=== PATIENT | female | born 1965 | race Caucasian/White ===

== ENCOUNTER 2021-10-20 07:50 | Outpatient (CLI) | payer OTHER, SELFPAY ==
--- NOTE | 2021-11-01 22:24 | WPDHOMESLEEP ---
Sleep Study - Home Unattended Date of Study: 10/20/21 Ordering Provider: Calr Sol MD Interpreting Provider: Beth Tripathi, DO Home Sleep Study Type: Apnea Link Air Height: 1.63 m Weight: 78.018 kg Body Mass Index: 29.5 Neck Circumference (inches): 14 Mcnabb: 7 Reason for Sleep Study Loud snoring, unrefreshing sleep Sleep History The patient is a 56-year-old female with asthma, hypertension, GERD, anxiety, depression, anemia and eczema that had a sleep study ordered by her primary care physician for evaluation of sleep apnea. The patient denies awakening from sleep short of breath. She frequently awakens at night with heartburn, belching or cough. She frequently snores and is constantly loudly enough that others complain. She occasionally has trouble sleeping when she has a cold. She denies waking up gasping for air throughout the night. She denies having breathing problems at night observed by herself or others. She frequently sweats excessively at night. She denies having heart palpitations or irregular heartbeats during the night. She rarely falls asleep during the day and never while driving. She denies cataplexy. She denies having trouble at school or work due to sleepiness. She rarely feels unable to move when waking up or falling asleep. She occasionally experiences vivid dreamlike scenes upon awakening or falling asleep. She denies feeling afraid of going to sleep. She occasionally has nightmares. She frequently remembers her dreams. She frequently has thoughts racing through her mind. She occasionally feels sad or depressed. She constantly has anxiety. She denies having muscular tension. She occasionally notices parts of her body jerk. She rarely kicks during the night. She rarely has crawling and aching feelings in her legs. She rarely has leg pain during the night. She occasionally grinds her teeth during sleep and occasionally awakens with morning jaw pain. She is occasionally bothered by pain during the day but rarely awakened by pain during the night. She occasionally wakes up feeling stiff in the morning. She occasionally wakes up with sore achy muscles. She frequently wakes up with pain in the neck, spine and other joints. She goes to bed between 10 30 to 11:30 p.m. on both weekdays and weekends. It takes her 2 hours to fall asleep. She wakes up 3-5 times throughout the night to urinate. It takes her 30-60 minutes to fall back asleep. She wakes up between 6-8 a.m. on weekdays and between 7-9 a.m. on the weekends. She typically gets 7-9 hours of sleep per night. She will stay in bed for 5-20 minutes after waking up in the morning. She currently lives with her . She does not consume any caffeinated beverages within 2 hours of bedtime. She does not engage in physical exercise before bedtime. She will watch television before falling asleep. She will take naps in the afternoon or the evening and they are refreshing. She drinks 2-3 caffeinated beverages per day. She drinks 3 alcoholic beverages per day. She denies tobacco and recreational drug use. [facility] Past Medical History Medical History Acute cholecystitis Acute pancreatitis (~03/21/21) Anemia (06/06/20) hemoglobin 8.9 on 06/06/2020 Anxiety disorder, unspecified Benign essential HTN BMI 29.0-29.9,adult BMI 33.0-33.9,adult Breast cancer screening by mammogram Normal mammogram 02/03/2021 ordered by saturator tender. Chronic bilateral low back pain with left-sided sciatica Chronic depression Chronic GERD Colon cancer screening COVID-19 (08/16/21) tested positive 08/17/2021. Eczema (~09/07/21) eczematous patches on back 09/07/2021. Elevated fasting glucose Glucose 111 on 04/15/2021. Encounter for screening for other viral diseases COVID antibody test on 06/06/2020 was negative Folic acid deficiency Gastritis Hypersomnia Insomnia, unspecified Iron deficiency an
[2021-11-01 22:34] VITALS: BMI 29.5
== END 2021-10-21 14:42 | disposition home or self-care (01) ==
LOC: ANHCSM 07:52
PROVIDERS: PCP Family Medicine; Visit Provider Family Medicine
DX: G47.10 Hypersomnia, unspecified (principal); G47.00 Insomnia, unspecified; G47.33 Obstructive sleep apnea (adult) (pediatric)
CPT/HCPCS: 95806

== ENCOUNTER 2024-05-07 01:22 | Day surgery (SDC) | payer OTHER, SELFPAY ==
[2024-04-23 16:03] VITALS: BMI 31.4
--- OUTSIDE RECORDS SUMMARY | 2024-05-07 01:25 | XMS_ITS | Clinical Summary ---
Author Organization [facility] [employer] Address [address] [place] [address] Care Team Providers Care Java Analyst Name Role Phone Unavailable Primary Care Provider Unavailabl e Source Comments [facility] [employer],non-owned Affiliates and Associated Physician Practices is amultiple site organization consisting of ambulatory clinics and hospital sitesin [place], [place], [place]. This disclosure is being madepursuant to the Care Everywhere program and may not contain all information available regarding this patient. Last updated 17.[facility] [employer] Social History Tobacco Use Types Packs/Day Years Used Date Smoking Tobacco: Never Assessed Sex and Gender Information Value Date Recorded Sex Assigned at Not on file Gender Identity Not on file Sexual Orientation Not on file Plan of Treatment Health Maintenance Due Date Last Done Comments COLOGUARD (AGES 45-75) - COL ON CA SCREENING 1963 COLON MONITORING 1963 COLONOSCOPY - COLON CA SCREENING 1963 CT COLONOGRAPHY - COLON CA SCREENING 1963 Colorectal Cancer Screening 1963 FIT - COLON CA SCREENING 1963 FLEX SIG - COLON CA SCREENING 1963 LIPID TESTING 1963 MAMMOGRAM 1963 PAP SMEAR 1963 HIV SCREENING 1978 HEPATITIS C SCREENING 03/14/1981 DTAP/TDAP/TD VACCINES (1 - Tdap) 1982 PNEUMOCOCCAL VACCINE 50+ (1 of 1 - PCV) 2013 ZOSTER VACCINE (1 of 2) 2013 COVID-19 VACCINE ( - 2023-2 5 season) 2023 INFLUENZA VACCINE (#1) 2023 DEPRESSION SCREENING 02/29/2024 Respiratory Syncytial Virus (RSV) Vaccine Pt: or over 60 yrs (1 - 1-dose 75+ series) 2038 HEPATITIS B VACCINE Aged Out No longe r eligible based on patient's age to complete this topic HIB VACCINE Aged Out No longer eligi ble based on patient's age to complete this topic HPV VACCINE Aged Out No longer eligi ble based on patient's age to complete this topic MENINGOCOCCAL (Group B) VACCINE Aged Out No longer eligible based on patient's age to complete this topic MENINGOCOCCAL VACCINE Aged Out No michele gia eligible based on patient's age to complete this topic PNEUMOCOCCAL VACCINE Aged Out No long er eligible based on patient's age to complete this topic
--- OUTSIDE RECORDS SUMMARY | 2024-05-07 01:25 | XMS_ITS | Clinical Summary ---
Author Organization [facility] [address] [place] [id number] Care Team Providers Care Asbestos Siding Mechanic Name Role Phone Carl Sol MD Primary Care Provider [phone] Allergies No known active allergies Medications venlafaxine XR (EFFEXOR-XR) 75 mg 24 hr capsule Take 1 capsule (75 mg total) by mouth daily Active nebivoloL (BYSTOLIC) 5 mg tablet Take 1 tablet (5 mg total) by mouth daily Active omeprazole (PriLOSEC) 40 mg capsule Take 1 capsule (40 mg total) by mouth daily Active levalbuterol (XOPENEX HFA) 45 mcg/actuation inhaler Inhale 2 puffs every 6 (six) hours as needed Active mometasone-formo terol (DULERA 100) 100-5 mcg/actuation inhaler Inhale 2 puffs 2 (two) times a day Rinse mouth with water after use. Do not swallow. Active zolpidem (AMBIEN) 10 mg tablet Take 1 tablet (10 mg total) by mouth nightly as needed 03/05/19 22 Active triamcinolone (KENALOG) 0.1 % ointment triamcinolone acetonide 0.1 % topical ointment MIX WITH NYSTATIN AND APPLY TO THE AFFECTED AREA TWICE DAILY FOR 4 WEEKS, THEN APPLY ONCE DAILY FOR 4 WEEKS, THEN APPLY 3 TIMES A WEEK FOR 4 Active amLODIPine (NORVASC) 2.5 mg tablet Take 1 tablet (2.5 mg total) by mouth daily Active ALPRAZolam (XANAX) 0.25 mg tablet Take by mouth 2 (two) times a day as needed for anxiety Active atorvastatin (LIPITOR) 20 mg tablet 1 tablet (20 mg total) Active celecoxib (CeleBREX) 200 mg capsule Take 1 capsule (200 mg total) by mouth 2 (two) times a day Active clobetasoL (TEMOVATE) 0.05 % ointment Apply 1 Application topically 2 (two) times a day Active docusate sodium (Colace) 100 mg capsuleIndicatio ns:constipation Take 1 capsule (100 mg total) by mouth 2 (two) times a day for 14 days 28 capsule 12/01/19 23 Active docusate sodium (Colace) 100 mg capsuleIndicatio ns:constipation Take 1 capsule (100 mg total) by mouth 2 (two) times a day for 14 days 28 capsule 12/01/19 23 Active albuterol HFA (PROVENTIL HFA,VENTOLIN HFA,PROAIR HFA) 90 mcg/actuation inhalerIndicatio ns:Mild persistent asthma with exacerbation INHALE TWO PUFFS BY MOUTH EVERY 6 HOURS NEEDED FOR SHORTNESS OF BREATH OR WHEEZING 03/31/19 24 Active inhalational spacing device (Aerochamber MV) spacerIndication s:Mild persistent asthma with exacerbation Use with albuterol inhaler 1 each 04/26/19 24 Active Active Problems Problem Noted Date Diagnosed Date S/P umbilical hernia repair, follow-up exam 11/28 Umbilical hernia with obstruction 11/30/2022 Hypertension 11/28/2022 Hyperlipidemia 11/28/2022 Mild intermittent asthma without complication GERD without esophagitis 11/28/2022 Depression with anxiety 11/28/2022 Acute cholecystitis 04/16/2021 Assessment & Plan (04/16/2021 8:39 AM RECLAMATION WORKER): Diet as tolerated. Okay to return to work with light duty. No heavy lifting greater than 20 lb for 4 weeks. No submerging incisions for 4 weeks. Please call for any further questions or concerns. Ventral hernia with bowel obstruction 04/16/2021 Assessment & Plan (04/16/2021 8:40 AM RECLAMATION WORKER): The patient had a known umbilical hernia. When her gallbladder was causing the attack she had a significant amount of nausea and vomiting which made it enlarged. We have discussed correcting this and the need for mesh implantation if she would decide to pursue this in a month or so after she has recovered from gallbladder surgery. She is going to call us if she would like to set this up. Surgical History Surgery Date Site/Laterality Comments CHOLECYSTECTOMY 04/02/2021 Medical History Medical History Date Comments GERD (gastroesophageal reflux disease) Hypertension Motion sickness Depression Asthma Social History Tobacco Use Types Packs/Day Years Used Date Smoking Tobacco: Never Tobacco Cessation:Counseling Given: Not Answered AUDIT-C Answer Date Recorded Q1: How often do you have a drink containing alc ohol? Monthly or less 11/28/2022 Q2: How many drinks containi ng alcohol do you have on a typical day when you are drinking? 1 or 2 11/28/2022 Q3: How often do you have si x or more drinks on one occasion? Never 11/28/2022 Personal Safety Answer Date Recorded Have you ever been in or are you currently in a harmful physical or emotional relationship or is someone making you feel afraid or unsafe? Denies 11/28/2022 Comments No Sex and Gender Information Value Date Recorded Sex Assigned at Not on file Legal Sex Female 7:56 AM CDT Gender Identity Female 04/03/2021 8:59 PM RECLAMATION WORKER Sexual Orientation Straight 04/03/2021 8: 59 PM RECLAMATION WORKER Obstetrics History Last Filed Vital Signs Vital Sign Reading Time Taken Comments Blood Pressure 110/74 04/26/2023 4:42 PM RECLAMATION WORKER Pulse 83 04/26/2023 4:42 PM RECLAMATION WORKER Temperature 36.8 C (98.2 F) 04/26/2023 5:56 PM RECLAMATION WORKER Respiratory Rate 20 04/26/2023 4:42 PM RECLAMATION WORKER Oxygen Saturation 97% 04/26/2023 5:56 PM RECLAMATION WORKER Inhaled Oxygen Concentration - - Weight 84.4 kg (186 lb) 04/26/2023 4:42 PM RECLAMATION WORKER Height 162.6 cm (5' 4 ) 04/26/2023 4:42 PM RECLAMATION WORKER Body Mass Index 31.93 04/26/2023 4:42 PM RECLAMATION WORKER Plan of Treatment Health Maintenance Due Date Last Done Comments Cervical Cancer Screening 1963 Colon Cancer Screening-Colonoscopy 1963 Depression Screening 1963 Hepatitis C Screening 1963 DTaP/Tdap/Td Vaccine (1 - Tdap) 1974 Hepatitis B Screening 1981 Regular Well Visit/Exam 18-64 1981 Pneumococcal vaccine <65 (1 of 2 - PCV) 1982 Zoster Vaccine (1 of 2) 2013 Breast Cancer Screening-Mammogram 02/04/2022 021 Influenza Vaccine (#1) 2023 Medical Devices Implanted Type Area Coat Ironer Hand Device Identifier Shelf Expiration Date Model / Serial / Lot [employer]/C R Bard Ventralex St Sepra Sorbaflex 2.5in [place] Open Bioresorbable [id number] - [id number] Implanted:Qty: 1 on 11/29/2022 by Layton Steen MD at [facility] N/A: Umbilical [employer] 06/26/2023 [id number] / / [id number] Insurance T SIG [id number] [facility] CMR Advance Directives For more information, please contact: [phone] * Full Code (Latest Code Status on File) Date Activated Date Inactivated Comments 11/28/2022 1:31 AM 11/30/2022 6:16 PM Care Teams Asbestos Siding Mechanic Relationship Specialty Start Date End Date Carl Sol MD [address] [address] PCP - General Family Medicine 11/16/19
--- OUTSIDE RECORDS SUMMARY | 2024-05-07 01:25 | XMS_ITS | Clinical Summary ---
Author Organization [facility] Address [address], [address] [place] [address] Phone Care Team Providers Care Induction Heat Treater Name Role Phone Carl Sol MD Primary Care Provider [phone] Allergies No known active allergies Medications SUMAtriptan (IMITREX) 100 MG Tablet TK 1 T PO IMM PRF MIGRAINE 11 8 Active zolpidem (AMBIEN) 10 MG Tablet 5 8 Active venlafaxine (EFFEXOR-XR) 75 MG CAPSULE SR 24 HR Take 75 mg by mouth daily. Active omeprazole (PRILOSEC) 40 MG CAPSULE DELAYED RELEASE Take 40 mg by mouth daily. Active nebivolol (BYSTOLIC) 5 MG Tablet Take 5 mg by mouth daily. Active MAGNESIUM PO Take 1 Tab by mouth daily. Active otherIndication s:STEROID INHALER DOESNT KNOW WHAT KIND by Other route. Acti ve levalbuterol (XOPENEX HFA) 45 MCG/ACT Aerosol take 2 Puffs by inhalation every 6 hours as needed. Active Family History Medical History Relation Name Comments Heart Disease Father Diabetes Mother Relation Name Status Comments Father Mother Alive Social History Tobacco Use Types Packs/Day Years Used Date Smoking Tobacco: Never Smokeless Tobacco: Never Alcohol Use Standard Drinks/Week Comments Yes 0 (1 standard drink = 0.6 oz pur e alcohol) few beers a week PHQ-2 Answer Date Recorded PHQ-2 Score 0 11/11/2018 Comments Unknown Sex and Gender Information Value Date Recorded Sex Assigned at Not on file Legal Sex Female 11:29 PM CDT Gender Identity Not on file Sexual Orientation Not on file Last Filed Vital Signs Vital Sign Reading Time Taken Comments Blood Pressure 137/94 02/13/2018 9:42 AM THREAD CUTTER TENDER Pulse 73 02/13/2018 8:20 AM THREAD CUTTER TENDER Temperature 36 C (96.8 F) 02/13/2018 9:42 AM THREAD CUTTER TENDER Respiratory Rate 19 02/13/2018 9:42 AM THREAD CUTTER TENDER Oxygen Saturation 100% 02/13/2018 9:42 AM THREAD CUTTER TENDER Inhaled Oxygen Concentration - - Weight 79.4 kg (175 lb) 01/23/2018 11:00 AM THREAD CUTTER TENDER Height 162.6 cm (5' 4 ) 01/23/2018 11:00 AM THREAD CUTTER TENDER Body Mass Index 30.04 01/23/2018 11:00 AM THREAD CUTTER TENDER Plan of Treatment Health Maintenance Due Date Last Done Comments Hepatitis C Virus (HCV) Screening 1963 TdaP Immunization 1963 Pap Smear 1984 Cervical Cancer Screening (CCS) 1993 HPV/Cotest 1993 Cologuard 2013 Immunochemical Fecal Occult Blood 2013 Mammogram 2013 Pneumococcal Immunization (5 0+ years) (1 of 1 - PCV) 2013 Zoster Immunization (1 of 2) 2013 Influenza Immunization (#1) 2023 SARS-COV-2 Immunization ( - 2023- season) 2023 Colonoscopy 02/07/2028 02/06/2018 Colorectal Cancer Screening 02/07/2028 Respiratory Syncytial Virus (RSV) Immunization (Adult) (1 - 1-dose 75+ series) 2038 02/06/2018 Hepatitis B Immunization Aged Out No longer eligible based on patient's age to complete this topic Meningococcal Immunization (ACWY) Aged Out No longer eligible based on patient's age to complete this topic Pneumococcal Immunization Combined Aged Out No longer eligible based on patient's age to complete this topic Rotavirus Immunization Aged Out No lo nger eligible based on patient's age to complete this topic Care Teams Induction Heat Treater Relationship Specialty Start Date End Date Carl Sol MD [address] [address] PCP - General Family Medicine 08/11/17
--- OUTSIDE RECORDS SUMMARY | 2024-05-07 01:25 | XMS_ITS | Referral Summary ---
Author Organization [facility] Address [address] [place] [address] Care Team Providers Care Retail Supervisor Name Role Phone Unavailable Primary Care Provider Unavailabl e Source Comments [facility],non-[facility] Affiliates and Associated Physician Practices is amultiple site organization consisting of ambulatory clinics and hospital sitesin [place], [place], [place] and [place]. This disclosure is being madepursuant to the Care Everywhere program and may not contain all information available regarding this patient. Last updated 17.[facility] [employer] Social History Tobacco Use Types Packs/Day Years Used Date Smoking Tobacco: Never Assessed Sex and Gender Information Value Date Recorded Sex Assigned at Not on file Gender Identity Not on file Sexual Orientation Not on file Plan of Treatment Not on file
--- OUTSIDE RECORDS SUMMARY | 2024-05-07 01:25 | XMS_ITS | Encounter Summary ---
Author Organization [facility] Address [address] [place] [address] Care Team Providers Care Acupressure Therapist Name Role Phone Unavailable Primary Care Provider Unavailabl e Encounter Details Date Type Department Care Team (Late st Contact Info) Description 05/02/2023 Lab Requisition [facility] - Derm[facility] Lab [address] [place] [phone] Neel Gutierrez Jr., MD [address] [place] [address] Social History Tobacco Use Types Packs/Day Years Used Date Smoking Tobacco: Never Assessed Sex and Gender Information Value Date Recorded Sex Assigned at Not on file Gender Identity Not on file Sexual Orientation Not on file documented as of this encounter Plan of Treatment Not on file documented as of this encounter Procedures Procedure Name Priority Date/Time Associated Diagnosis Comments DERMATOPATHOLOGY Routine 04/29/2023 3:33 AM CHROME PLATER documented in this encounter Results * DERMATOPATHOLOGY (04/29/2023 3:33 AM CHROME PLATER) Case Report Dermatopathology Report Case: [id number] Authorizing Provider: Neel Gutierrez Jr., MD Collected: 04/29/2023 03:33 AM Ordering Location: [facility] - Received: 05/02/2023 02:09 PM DermPath Lab Pathologist: Le Rivera MD Specimen: Skin, right anterior proximal thigh 11:43 AM [facility] DERMATOPATHOLOGY LABORATORY Final Diagnosis Specimen A. SKIN, right anterior proximal thigh: ACTINIC KERATOSIS, LICHENOID (L57.0) 11:43 AM [facility]ERMAT[facility] Clinical History Inflamed seborrheic Keratosis vs Basal Cell Carcinoma vs Squamous Cell Carcinoma. 11:[address] [facility] DERMATOPATHOLOGY LABORATORY Gross Description Specimen A: Received is one formalin filled container labeled with the patient's name and designated right anterior proximal thigh. The specimen consists of a shave biopsy measuring 10x9x1 mm. Jar 0. 11:[address] [facility] DERMATOPATHOLOGY LABORATORY Microscopic Description Specimen A. SKIN, right anterior proximal thigh: There is focal parakeratosis. The lower half of the epidermis shows disorderly maturation of keratinocytes with nuclear pleomorphism. The dermis shows a band-like, chronic inflammatory infiltrate with occasional apoptotic keratinocytes and some basal vacuolar alteration. 11:[address] [facility] DERMATOPATHOLOGY LABORATORY Disclaimer An external and internal positive and negative controls are appropriate for the histochemical, immunohistochemical and immunofluorescence stain(s) in this case (if any), except where stated explicitly. The performance characteristics of the stain(s) cited in this report were developed and its performance characteristic determined by the Dermatopathology Laboratory at [facility], directed by Dr. Marli Garner. These tests need not be, and therefore are not, approved by the [place] Food and Drug Administration. The tests are used for clinical purposes. Billing Codes Specimen Charges Stain Charges 67306 1 11:[address] [facility] DERMATOPATHOLOGY LABORATORY Embedded Images 11:[address] [facility] DERMATOPATHOLOGY LABORATORY Pathology/Cytolo gy TISSUE SPECIMEN FROM SKIN / Unknown 04/29/2023 3:33 AM CHROME PLATER 05/02/2023 2:09 PM CHROME PLATER Neel Gutierrez Jr., MD LAB - PATHOLOGY /CYTOLOGY ORDERABLES DERMATOPATHOLOGY LABORATORY [facility] - Department of Dermatology [address], [address] [phone] documented in this encounter Visit Diagnoses Not on filedocumented in this encounter
--- OUTSIDE RECORDS SUMMARY | 2024-05-07 01:25 | XMS_ITS | Patient Health Summary ---
Author Organization [facility] Address [address] [place] [address] Care Team Providers Care Scaffolder Name Role Phone Unavailable Primary Care Provider Unavailabl e Note from [facility],non-owned Affiliates and Associated Physician Practices is amultiple site organization consisting of ambulatory clinics and hospital sitesin [place], [place], [place] and [place]. This disclosure is being madepursuant to the Care Everywhere program and may not contain all information available regarding this patient. Last updated 17.[facility] Social History Tobacco Use Types Packs/Day Years Used Date Smoking Tobacco: Never Assessed Sex and Gender Information Value Date Recorded Sex Assigned at Not on file Gender Identity Not on file Sexual Orientation Not on file Procedures * DERMATOPATHOLOGY(Performed 04/29/2023) Results * DERMATOPATHOLOGY (04/29/2023 3:33 AM PRECISION LENS TECHNICIAN) Case Report Dermatopathology Report Case: [id number] Authorizing Provider: Neel Gutierrez Jr., MD Collected: 04/29/2023 03:33 AM Ordering Location: [facility] - Received: 05/02/2023 02:09 PM DermPath Lab Pathologist: Le Rivera MD Specimen: Skin, right anterior proximal thigh 11:43 AM PRECISION LENS TECHNICIAN DERMATOPATHOLOGY LABORATORY Final Diagnosis Specimen A. SKIN, right anterior proximal thigh: ACTINIC KERATOSIS, LICHENOID (L57.0) 4 11:43 AM PRECISION LENS TECHNICIAN DERMATOPATHOLOGY LABORATORY Clinical History Inflamed seborrheic Keratosis vs Basal Cell Carcinoma vs Squamous Cell Carcinoma. 11:43 AM PRECISION LENS TECHNICIAN DERMATOPATHOLOGY LABORATORY Gross Description Specimen A: Received is one formalin filled container labeled with the patient's name and designated right anterior proximal thigh. The specimen consists of a shave biopsy measuring 10x9x1 mm. Jar 0. 4 11:43 AM [facility] DERMATOPATHOLOGY LABORATORY Microscopic Description Specimen A. SKIN, right anterior proximal thigh: There is focal parakeratosis. The lower half of the epidermis shows disorderly maturation of keratinocytes with nuclear pleomorphism. The dermis shows a band-like, chronic inflammatory infiltrate with occasional apoptotic keratinocytes and some basal vacuolar alteration. 11:43 AM [facility] DERMATOPATHOLOGY LABORATORY Disclaimer An external and internal positive and negative controls are appropriate for the histochemical, immunohistochemical and immunofluorescence stain(s) in this case (if any), except where stated explicitly. The performance characteristics of the stain(s) cited in this report were developed and its performance characteristic determined by the Dermatopathology Laboratory at [facility], directed by Dr. Marli Garner. These tests need not be, and therefore are not, approved by the [place] Food and Drug Administration. The tests are used for clinical purposes. Billing Codes Specimen Charges Stain Charges 09747 1 4 11:43 AM [facility] DERMATOPATHOLOGY LABORATORY Embedded Images 11:43 AM [facility] DERMATOPATHOLOGY LABORATORY Pathology/Cytolo gy TISSUE SPECIMEN FROM SKIN / Unknown 04/29/2023 3:33 AM PRECISION LENS TECHNICIAN 05/02/2023 2:09 PM [facility] Neel Gutierrez Jr., MD LAB - PATHOLOGY /CYTOLOGY ORDERABLES DERMATOPATHOLOGY LABORATORY [facility] - Department of Dermatology [address], [address] [phone]
--- OUTSIDE RECORDS SUMMARY | 2024-05-07 01:25 | XMS_ITS | Referral Summary ---
Author Organization [facility] [address] [place] [id number] Care Team Providers Care Kitchen Aide Name Role Phone Carl Sol MD Primary Care Provider [phone] Allergies No known active allergies Medications venlafaxine [...] 04/16/2021 Assessment & Plan (04/16/2021 8:39 AM TAX SERVICES MANAGER): Diet as tolerated. Okay to return to work with light duty. No heavy lifting greater than 20 lb for 4 weeks. No submerging incisions for 4 weeks. Please call for any further questions or concerns. Ventral hernia with bowel obstruction 04/16/2021 Assessment & Plan (04/16/2021 8:40 AM TAX SERVICES MANAGER): The patient had a known umbilical hernia. [...] she would like to set this up. Social History Tobacco Use Types Packs/Day Years [...] CDT Gender Identity Female 04/03/2021 8:59 PM TAX SERVICES MANAGER Sexual Orientation Straight 04/03/2021 8: 59 PM TAX SERVICES MANAGER Last Filed Vital Signs Vital Sign Reading Time Taken Comments Blood Pressure 110/74 04/26/2023 4:42 PM TAX SERVICES MANAGER Pulse 83 04/26/2023 4:42 PM TAX SERVICES MANAGER Temperature 36.8 C (98.2 F) 04/26/2023 5:56 PM TAX SERVICES MANAGER Respiratory Rate 20 04/26/2023 4:42 PM TAX SERVICES MANAGER Oxygen Saturation 97% 04/26/2023 5:56 PM TAX SERVICES MANAGER Inhaled Oxygen Concentration - - Weight 84.4 kg (186 lb) 04/26/2023 4:42 PM TAX SERVICES MANAGER Height 162.6 cm (5' 4 ) 04/26/2023 4:42 PM TAX SERVICES MANAGER Body Mass Index 31.93 04/26/2023 4:42 PM TAX SERVICES MANAGER Plan of Treatment Not on file Medical Devices Implanted Type Area Sheep Clipper Device Identifier Shelf Expiration Date Model / Serial / Lot [employer] Ventralex St Sepra Sorbaflex 2.5in [place] Open [employer]orbable [id number] - [id number] Implanted:Qty: 1 on 11/29/2022 by Layton Steen MD at [facility] N/A: Umbilical [employer] 06/26/2023 [id number] / / [id number] Insurance [employer] SIG [id number] [facility] Advance Directives For more information, please contact: [phone] * Full Code (Latest Code Status on File) Date Activated Date Inactivated Comments 11/28/2022 1:31 AM 11/30/2022 6:16 PM Care Teams Kitchen Aide Relationship Specialty Start Date End Date Carl Sol MD [address] [address] PCP - General Family Medicine 11/16/19
--- OUTSIDE RECORDS SUMMARY | 2024-05-07 01:25 | XMS_ITS | Data Portability ---
Author Organization [facility] [place] Address [address] [place] [address] Care Team Providers Care Public Health Professor Name Role Phone MICHELLE BARNES Primary Care Provider Assessment Encounter Date Assessment Date Assessment LastModified by Organization Details LastModified Time 09/26/2021 09/26/2021 Annual gynecological exam performed. Patient will come back in a year unless there are new symptoms. [email or web address] Not available 09/26/2021 11:22:05 01/30/2024 01/30/2024 Annual gynecological exam performed. Patient will come back in a year unless there are new symptoms. [email or web address] Not available 01/30/2024 10:39:04 Plan of Treatment Reminders Order Date Submit Date Provider Last Modified By Organization Details Last Modified Time Details Appointments None recorded. Lab None recorded. Referral None recorded. Procedures colonoscopy screening (PROC) [address] [facility], [address], [id number], [place], [address], 4 12:05:36 Surgeries None recorded. Imaging MAMMO, screening, digital, bilateral 2023 024 [facility], [address], [place], [address], 4 04:12:19 MAMMO, screening, bilateral 2021 022 [facility], [address] [place], [address], 2 15:04:39 Medication Orders nystatin 100,000 unit/gram topical powder 2023 024 [id number], [address], [place], [place], [id number], 4 11:19:35 clobetasol 0.05 % topical ointment 2023 024 [email or web address] [id number], [address], [place], [place], [id number], 4 11:16:15 clotrimazol e-betametha sone 1 %-0.05 % topical cream 2022 023 [email or web address] [facility] #66956, [address], [place], [place], [id number], 4 10:48:21 Diflucan 150 mg tablet 2022 023 [facility], [address], [place], [place], [id number], 4 10:48:28 clobetasol 0.05 % topical ointment 2021 022 [facility] [facility], [address], [place], [place], [id number], 2 11:34:31 nystatin-tr iamcinolone 100,000 unit/gram-0 .1 % topical ointment 2020 021 [email or web address] 1 [facility], [address], [place], [place], [id number], 2 11:22:43 Patient TargetsNo targets recorded. Patient InstructionsNo instructions recorded. Reason for Referral None Reported. 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 Order ing Locat ion: [place] Patho logy Recei tobi: 09/20 0053 First Scree n: [place] Go, CT Speci men: Ingrid resendiz Pap - Image d, Cervi x STATE MENT OF ADEQU ACY: Satis facto ry for evalu ation Trans forma tion zone compo nent prese nt FINAL DIAGN OSIS: Negat pavan for Intra epith elial Adin ernst or Denise balderas shantal d by [place] Go, CT on 2020 at 12:18 PM ----- ----- ----- ----- ----- ----- ----- ----- ----- ----- ----- ----- ----- ----- ----- ----- ----- ---- HPV RESUL TS: HPV mRNA E6/E7 : No HPV mRNA Detec lisa NOTE: This high risk HPV mRNA assay detec ts fourt een high- risk HPV types (16, 18, 31, 33, 35, 39, 45, 51, 52, 56, 58, 59, 66, 68) witho ut diffe renti ation . CHART ABLE COMME NT: Note: This speci men was revie wed by a Cytot echno logis t and/o r Patho logis t (as indic ated in this repor t) after evalu ation using the Thinp rep Imagi ng Syste m. CLINI CARMELINA INFOR MATIO N: Menst rual Statu s: LMP (if appli cable ): Clini carmelina Histo ry/Pr eviou s Pap: Type of Neopl chivo (if appli cable ): Other Histo ry: Hormo mg (if appli cable ): PAP EDUCA JAMIA L NOTE: The Pap Test is a scree astrid test with an inher ent false negat pavan rate. Liqui d-bas e sampl ing may decre ase, but will not elimi tsering, false negat pavan resul ts. A negat pavan resul t does not precl ude the prese nce and/o r devel opmen t of disea se, since the prese nce of abnor mal cells in the sampl e depen ds on the locat ion of the lesio n and sampl ing techn ique. Rut nued regul ar scree astrid is the best metho d of cance r preve ntion . If repor lisa cytol ogic findi ng do not corre late with physi carmelina and/o r histo rical findi ngs, furth er inves tigat ion is recom prateek d, as clini hien warra nted. 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 There is no evide nce of dyspl chivo. The findi ngs are consi stent with liche n scler osis et atrop hicus . Clini carmelina corre latio n is recom prateek d. This case has been revie wed by intra depar tment al consu ltati on, with agree ment. CLINI CARMELINA INFOR MATIO N: not provi ded MICRO SCOPI C DESCR IPTIO N: A micro scopi c exami natio n was perfo rmed. GROSS DESCR IPTIO N: A. Labia Minor a, Left. The speci men is label ed with the patie nt's name, demog raphi cs and lesi on of vulva . Recei tobi in forma cierra is a 0.3 x 0.2 x 0.2 cm fragm ent of white tissu e. It is bisec lisa and submi tted in casse tte A1. Gross ed by Rosa Quinones on Not Available [facility] (Lab) [address] [facility], [place], [address], 10/03/2020 15:31:27 01/30/20 24 01/30/2024 IMAGE GUIDE D PAP AND HPV REGAR DLESS image guided Pap, HPV regardless of Pap result SEE RESULT S BELOW CASE REPOR T: Cytol ogy Gynec ologi carmelina Repor t Case: [id number] Autho maximino norman Provi teri: Dermo dy, Savanah , ANP, [employer] SUPERVISOR Colle cted: 01/29 1136 Order ing Locat ion: [place] Patho logy Recei tobi: 01/30 0207 First Scree n: DeLuc a, [place], CT Rescr een: Kingtson Cheung , CT Speci men: Ingrid resendiz Pap - Image d, Cervi x STATE MENT OF ADEQU ACY: Satis facto ry for evalu ation Trans forma tion zone compo nent prese nt ----- ----- ----- ----- ----- ----- ----- ----- ----- ----- ----- ----- ----- ----- ----- ----- ----- ---- FINAL DIAGN OSIS: Negat pavan for Intra epith elial Adin ernst or Denise agosto ([facility]) . Elect mike murguia d by [place] Cheung , CT on 02/06 at 5:37 PM ----- ----- ----- ----- ----- ----- ----- ----- ----- ----- ----- ----- ----- ----- ----- ----- ----- ---- HPV RESUL TS: HPV mRNA E6/E7 : No HPV mRNA Detec lisa NOTE: This high risk HPV mRNA assay detec ts fourt een high- risk HPV types (16, 18, 31, 33, 35, 39, 45, 51, 52, 56, 58, 59, 66, 68) witho ut diffe renti ation . COMME NT: This speci men was revie wed by a Cytot echno logis t and/o r Patho logis t (as indic ated in this repor t) after evalu ation using the Thinp rep Imagi ng Syste m. CLINI CARMELINA INFOR MATIO N: Menst rual Statu s: LMP (if appli cable ): Clini carmelina Histo ry/Pr eviou s Pap: Type of Neopl chivo (if appli cable ): Signi ficroseann t Clini carmelina Findi ngs: Other Histo ry: Hormo mg (if appli cable ): PAP EDUCA JAMIA L NOTE: The Pap Test is a scree astrid test with an inher ent false negat pavan rate. Liqui d-bas ed sampl ing may decre ase, but will not elimi tsering, false negat pavan resul ts. A negat pavan resul t does not precl ude the prese nce and/o r devel opmen t of disea se, since the prese nce of abnor mal cells in the sampl e depen ds on the locat ion of the lesio n and sampl ing techn ique. Rut nued regul ar scree astrid is the best metho d of cance r preve ntion . If repor lisa cytol ogic findi ng do not corre late with physi carmelina and/o r histo rical findi ngs, furth er inves tigat ion is recom prateek d, as clini hien warremir nted. Not Available [facility] (Lab) [address] [facility], [place], [address], 02/07/2024 18:40:32 02/05/20 21 02/03/2021 MAMMO , scree astrid, bilat eral No observ ation record ed. [place] [facility] [address], [place], [address], 02/09/2021 20:24:04 Result Notes None recorded. Procedures Surgical History Date Name Laterality Status Provider Name and Address Organization Details Recorded Time 023 hernia repair completed Brandy Bowman [facility] 01/30/2024 10:51:59 022 cholecystectomy completed Macrina Felix [facility] 09/26/2021 11:25:23 021 Date of Last Mammogram completed Macrina Felix [facility] 09/26/2021 11:23:21 021 Vulvar Biopsy completed Amairani Courtney, [place]- [address], [place], [address], [facility] 10/02/2020 15:39:00 021 biopsy of vulva completed Beba Kelvin [facility] 08/20/2021 11:34:46 021 Date of Last Pap Smear completed Brandy Aquinoton [facility] 01/30/2024 10:40:02 015 endometrial biopsy completed Macrina Felix [facility] 10/19/2021 12:48:34 969 Tonsillectomy completed Macrinaanjelica Felix [facility] 09/26/2021 11:25:10 Imaging Results Imaging Date Name Status LastModified by Organiz ation Details LastModified Time 02/03/2021 MAMMO, screening, bilateral completed [facility] [address], [place], [address], 02/09/2021 20:24:04 Procedure Notes None recorded. Medical Equipment None Reported. Allergies No known drug allergies Medications Name Sig Start Date Stop Date Status Note LastModified by Organization Details LastModified Time celecoxib 200 mg capsule 200 mg twice a day by oral route. active Not Available Not Available No t Available metformin 500 mg tablet Take 1 tablet twice a day by oral route. active Not Available Not Available No t Available azelastine 0.05 % eye drops INSTILL 1 DROP INTO THE EYES TWICE A DAY NEEDED FOR ITCHING EYES active Not Available Not Available No t Available atorvastati n 20 mg tablet 20 mg every day by oral route. active Not Available Not Available No t Available venlafaxine 75 mg tablet Take 1 tablet twice a day by oral route. active Not Available Not Available No t Available triamcinolo ne acetonide 0.5 % topical cream APPLY TOPICALLY TO RASH TWICE DAILY UNTIL CLEAR BUT NO LONGER THAN 2 WEEKS 01/29 completed Not Available Not Available Not Available azithromyci n 250 mg tablet TAKE 2 TABLETS BY MOUTH FOR 1 DAY THEN TAKE 1 TABLET BY MOUTH DAILY FOR 4 DAYS 01/29 completed Not Available Not Available Not Available nystatin 100,000 unit/gram topical ointment APPLY TO THE AFFECTED AREA TWICE DAILY FOR 4 WEEKS, THEN APPLY ONCE DAILY FOR 4 WEEKS, THEN APPLY 3 TIMES A WEEK FOR 4 WEEKS 09/26 completed Not Available Not Available Not Available sumatriptan 100 mg tablet TAKE 1 TABLET BY MOUTH AT ONSET OF MIGRAINE. MAY REPEAT AFTER 2 HOURS. IF HEADACHE RETURNS. NOT TO EXCEED 200 MG IN 24 HOURS active Not Available Not Available No t Available hydrocodone 5 mg-acetamin ophen 325 mg tablet TAKE 1 TABLET BY MOUTH EVERY 6 HOURS FOR UP TO 7 DAYS NEEDED FOR PAIN 01/29 completed Not Available Not Available Not Available hydroquinon e 4 % topical cream APPLY A THIN LAYER TO DARK SPOTS ON THE FACE TWICE DAILY MUST USE SUNSCREEN WHILE USING THIS PRODUCT. AVOID NORMAL SKIN 4 WEEKS ON 4 WEEKS OFF 01/29 completed Not Available Not Available Not Available ondansetron HCl 4 mg tablet 01/29 completed Not Available Not Available Not Available prednisone 20 mg tablet TAKE 1 TABLET BY MOUTH EVERY MORNING. START FIRST DOSE NOW 01/29 completed Not Available Not Available Not Available pimecrolimu s 1 % topical cream APPLY THIN LAYER TOPICALLY TO THE AFFECTED AREA TWICE DAILY 11/17 completed Not Available Not Available Not Available Diflucan 150 mg tablet Take 1 tablet every day by oral route as directed for 1 day. 01/29 completed Not Available Not Available Not Available amlodipine 2.5 mg tablet TAKE 1 TABLET BY MOUTH DAILY active Not Available Not Available No t Available omeprazole 40 mg capsule,del ayed release Take 1 capsule every day by oral route. active Not Available Not Available No t Available nystatin-tr iamcinolone 100,000 unit/gram-0 .1 % topical ointment 09/26 completed Not Available Not Available Not Available alprazolam 0.25 mg tablet TAKE 1 TABLET BY MOUTH TWICE DAILY NEEDED FOR ANXIETY active Not Available Not Available No t Available ferrous sulfate 325 mg (65 mg iron) tablet Take 1 tablet every day by oral route. active Not Available Not Available No t Available tobramycin 0.3 % eye drops INSTILL 1 DROP IN BOTH EYES EVERY 4 HOURS FOR 7 DAYS 01/29 completed Not Available Not Available Not Available triamcinolo ne acetonide 0.1 % topical ointment MIX WITH NYSTATIN AND APPLY TO THE AFFECTED AREA TWICE DAILY FOR 4 WEEKS, THEN APPLY ONCE DAILY FOR 4 WEEKS, THEN APPLY 3 TIMES A WEEK FOR 4 09/26 completed Not Available Not Available Not Available clotrimazol e-betametha sone 1 %-0.05 % topical cream APPLY TOPICALLY TO THE AFFECTED AND SURROUNDI NG AREAS TWICE DAILY IN THE MORNING AND IN THE EVENING FOR 2 WEEKS NEEDED 01/29 completed Not Available Not Available Not Available docusate sodium 100 mg capsule TAKE ONE CAPSULE BY MOUTH TWICE DAILY X 14 DAYS 01/29 completed Not Available Not Available Not Available folic acid 1 mg tablet Take 1 tablet every day by oral route. active Not Available Not Available No t Available clobetasol 0.05 % topical ointment APPLY A THIN LAYER TO THE AFFECTED AREA(S) BY TOPICAL ROUTE 2 TIMES PER DAY x 4wks, then, once a day x 4wks, & then use PRN. 2023 active Not Available Not Available Not Avai lable nystatin 100,000 unit/gram topical powder APPLY TO THE AFFECTED AREA(S) BY TOPICAL ROUTE 2 TIMES PER DAY PRN 2023 active Not Available Not Available Not Avai lable zolpidem 10 mg tablet TAKE 1 TABLET BY MOUTH AT BEDTIME NEEDED FOR INSOMNIA active Not Available Not Available No t Available albuterol sulfate HFA 90 mcg/actuati on aerosol inhaler INHALE TWO PUFFS BY MOUTH EVERY 6 HOURS NEEDED FOR SHORTNESS OF BREATH OR WHEEZING active Not Available Not Available No t Available hydrocortis one 2.5 % topical ointment APPLY TO INFLAMED SKIN ON THE GROIN TWICE DAILY NEEDED 3 DAYS A WEEK 01/29 completed Not Available Not Available Not Available clobetasol 0.05 % scalp solution APPLY A THIN LAYER TOPICALLY TO THE SCALP TWICE DAILY NEEDED FOR UP TO 4 DAYS A WEEK 01/29 completed Not Available Not Available Not Available magnesium 250 mg (as magnesium oxide) tablet Take by oral route. active Not Available Not Available No t Available Premarin 0.625 mg/gram vaginal cream Insert 0.5mg nightly vaginally x 14 days, then, use twice weekly for maintenan ce. 09/26 completed Not Available Not Available Not Available cholestyram ine (with sugar) 4 gram oral powder DISSOLVE 4 GRAMS IN LIQUID AND DRINK TWICE DAILY NEEDED FOR DIARRHEA. TAKE WITH A MEAL. AVOID OTHER MEDS WITHIN 1 HOUR BEFORE OR 4 TO 6 HOURS AFTER 01/29 completed Not Available Not Available Not Available naproxen 11/17 completed Not Available Not Available Not Available amlodipine- benazepril 11/17 completed Not Available Not Available Not Available nebivolol 20 mg tablet Take 1 tablet every day by oral route. active Not Available Not Available No t Available ProChamber USE WITH ALBUTEROL INHALER 01/29 completed Not Available Not Available Not Available Dulera 200 mcg-5 mcg/actuati on HFA aerosol inhaler INHALE 2 PUFFS BY MOUTH TWICE DAILY 01/29 completed Not Available Not Available Not Available Dulera 01/29 completed Not Available Not Available Not Available Airsupra 90 mcg-80 mcg/actuati on HFA aerosol inhaler INHALE 2 PUFFS BY MOUTH FOUR TIMES DAILY NEEDED SHORTNESS OF BREATH active Not Available Not Available No t Available Vitals Date Recorded Body height Body mass index (BMI) Body weight Systolic blood pressure Diastolic blood pressure Provider Name and Address Organization Details Last Updated DateTime 10/02/2020 160.02 cm 31.5 kg/m2 30561.44 g 133 mm[Hg] 83 mm[Hg] Lexus Villalobos [facility] 15:02:53 Date Recorded Body height Body mass index (BMI) Body weight Provider Name and Address Organization Details Last Updated DateTime 11/06/2020 160.02 cm 31.5 kg/m2 20340.44 g Beba Warren [facility] 11/06/2020 11:45:28 Date Recorded Systolic blood pressure Diastolic blood pressure Provider Name and Address Organization Details Last Updated DateTime 11/06/2020 130 mm[Hg] 80 mm[Hg] JUNIOR Baltazar- [address], [place], [address], [facility] 11/06/2020 11:49:11 Date Recorded Body height Body mass index (BMI) Body weight Provider Name and Address Organization Details Last Updated DateTime 09/26/2021 160.02 cm 30.3 kg/m2 01867.3 g Macrina Felix [facility] 09/26/2021 11:22:19 Date Recorded Systolic blood pressure Diastolic blood pressure Provider Name and Address Organization Details Last Updated DateTime 09/26/2021 130 mm[Hg] 76 mm[Hg] Amairani Courtney, [facility]- [address], [place], [address], [facility] 09/26/2021 11:37:36 Date Recorded Body height Body mass index (BMI) Body weight Systolic blood pressure Diastolic blood pressure Provider Name and Address Organization Details Last Updated DateTime 11/17/2022 160.02 cm 34 kg/m2 93008.02 g 130 mm[Hg] 83 mm[Hg] Samina Combs [facility] 3 16:16:16 Date Recorded Body height Body mass index (BMI) Body weight Systolic blood pressure Diastolic blood pressure Provider Name and Address Organization Details Last Updated DateTime 01/30/2024 160.02 cm 33.5 kg/m2 75517.96 g 135 mm[Hg] 84 mm[Hg] Brandy Gracie [facility] 10:46:32 Social History Question Answer Notes LastModified by Organizat ion Details LastModified Time Tobacco Smoking Status Never Smoker Samina Combs null, [facility] 11/17/2022 16:16:43 What Is Your Level Of Alcohol Consumption? Occasional Information not available 09/19/2020 Are You Blind Or Do You Have Difficulty Seeing? No Information n ot available 09/19/2020 What Is Your Level Of Caffeine Consumption? Occasional Information not available 09/19/2020 In The 14 Days Before Symptom Onset, Have You Had Close Contact With A Laboratory-confirm ed COVID-19 While That Case Was Ill? No [email or web address] Information n ot available 09/26/2021 In The 14 Days Before Symptom Onset, Have You Had Close Contact With A Person Who Is Under Investigation For COVID-19 While That Person Was Ill? No [email or web address] Information not available 09/26/2021 Have You Been To An Area Known To Be High Risk For COVID-19? No [email or web address] Information not available 09/26/2021 Are You Deaf Or Do You Have Serious Difficulty Hearing? No Information not available 09/19/2020 What Type Of Diet Are You Following? SPECIFIC Information n ot available 11/17/2022 What Is The Highest Grade Or Level Of School You Have Completed Or The Highest Degree You Have Received? [id number] Information not available 11/17/2022 Have You Ever Been Counseled For Unhealthy Alcohol Use? No Information not available 11/17/2022 Do You Use Protection During Sex? No Information not available 11/17/2022 Do You Use Your Seat Belt Or Car Seat Routinely? Yes [email or web address] Information not available 10/19/2021 Do You Have Smoke And Carbon Monoxide Detectors In Your Home? Yes Information not available 09/19/2020 How Much Tobacco Do You Smoke? No Information not available 11/17/2022 Do You Feel Stressed (tense, Restless, Nervous, Or Anxious, Or Unable To Sleep At Night)? [id number] Information not available 11/17/2022 Do You Use Any Illicit Or Recreational Drugs? No Information not available 09/19/2020 Do You Use Sunscreen Routinely? Yes Information not available 09/19/2020 Has Tobacco Cessation Counseling Been Provided? No Information not available 11/17/2022 Have You Used IV Drugs? No Information not available 11/17/2022 Do You Or Have You Ever Used Any Other Forms Of Tobacco Or Nicotine? No Information not available 11/17/2022 Sex: Unknown Functional Status Question Answer Note LastModified by Organizat ion Details LastModified Time Do you have difficulty walking or climbing stairs? No Information not available 11/17/2022 Are you able to walk? YESWOREST Information not available 09/19/2020 Are you able to care for yourself? Yes Information not available 11/17/2022 Do you have difficulty dressing or bathing? No Information not available 11/17/2022 What is your exercise level? Occasional Information not available 09/19/2020 Mental Status None recorded. Family History Relationship Description Onset Age of this Age Resolved Age Notes LastModified by Organization Details LastModified Time Father Heart disease Not available 2020 11:41:23 Mother Diabetes mellitus Not available 2020 11:41:29 Medical History Condition Response Allergies (Food, seasonal, environmental ) Y Other Y Breast Cancer N Drug/Latex Allergies/Reactions N Blood Transfusion N Dermatologic Disorders N Lung Disease N Defects or Inherited Disease N Breast Problem N Gestational Diabetes N Hematologic disorders N Anesthesia Complications N History of STI N Deep Vein Thrombosis N Polycystic ovary syndrome N Anxiety Disorder Y Autoimmune disease N Arthritis Y Infertility N Polyps N Acid Reflux (GERD) Y History of abnormal pap N Cancer N Stroke N Varicosities N Neurologic/Epilepsy N Endometriosis N High Cholesterol N Headaches N Fibromyalgia N Kidney Disease N Heart Problems N Kidney or Bladder Problems N Thyroid Problems N GI Problems N Eating Disorder N Anemia N Art (IVF or FET) N Psychiatric Illness N Ovarian Cancer N Diabetes N Pulmonary (TB, Asthma) Y Hepatitis/Liver Disease N No Past Medical History N Eczema N Urinary Tract Infection N Abuse/Domestic Violence N Asthma Y Trauma/Violence N Depression/ depression Y Heart Disease N Pre-Eclampsia N Hypertension Y Osteoporosis N Thrombophilias N Gynecological History Statement/Question Response Abnormal Pap N Date of Last Mammogram 02/03/2021 Date of LMP 02/28/2015 STIs/STDs N 12 Current Control Method Menopause Age at First Child 21 If Post Menopausal, Age at Menopause [age] Sexually Active? N Date of DEXA bone scan Date of Last Pap Smear 09/19/2020 Sexual Problems? N LMP Unknown Obstetrics History GPAL:G 2 P 2 0 0 2 Type Value Full Term 2 Living 2 Total 2 Past Encounters Encounter ID Performer Location Encounter Start Date Encounter Closed Date Diagnosis/Indication Diagnosis SNOMED-CT Code Diagnosis ICD10 Code Diagnosis Note [id number] [facility] [address] [address] 09/19/2020 11:08:23 09/19/2020 12:10:36 Gynecologic examination 02077618 Z01.419 Take Calcium with Vitamin D 12-1500mg daily. Do monthly self breast exams. It is advised to get annual flu shot in the fall and she could obtain at [facility] or [facility] take care clinic. If you haven't received the Tdap vaccine in the last 10 years you should obtain one as well. Have mammogram yearly, bone density every 2-3 years and colonoscop y every 5-10 years depending on findings and history. Engage in daily exercise of low impact aerobic exercise 45-60 minutes 4-5 times weekly. Avoid tobacco and illicit drugs as well as using moderation with alcohol intake less than 1-2 8 oz beverages daily. This lifestyle behavior pattern will lead to less health conditions and longer life span. If BMI greater than 25 weight watchers or dietary consult advised. Questions have been answered. Patient appears to understand instructio ns, but if you have any further questions call or respond to this email Pap/hpv updatedMoc lined std screeColon UTDDexa n/a Dyspareunia [id number] N94 .10 Trial of low dose vaginal premarin to help with discomfort during SA likely caused from postmenopa usal changes as seen on exam. Reduced libido [id number] R 68.82 Hx of HTNControl led on medication No desire or libido at allThis causes relationsh ip issues. Lesion of vulva [id number] 6 N90.89 Lesion noted upper inner left labia minora; along with some white discolorat ion of skin surroundin g this area. Reports of chronic itching in this area. Have recommende d a biospy of these areasTo return in 1-2wks to have this completedU se vcg moisturizi ng guidelines daily [id number] Amairani Courtney , [facility] [address] [address] 10/02/2020 14:09:04 10/05/2020 16:05:58 Chronic vaginitis [id number] N76.1 See procedure notes. Post-proce dure instructafia zendejas reviewedH/ O's given on LS and instructafia zendejas for home review.Med ication sent & verbalized instructio ns/prison classification counselor ing given with understand ing verbalized .F/U to discuss results and check in on how medication is working. Time spent in visit is a total of 15 vmins with at least 50% of visit consisting of counseling and review of plan of care. Additional precaution katerina measures were taken to minimize potential exposure to the Covid-19 virus during this patient s visit, including available hand library information technician upon arrive, temperatur e check and being asked a series of screening questions. All staff wore face coverings during this encounter, as well as provided additional cleaning and sanitizing of all surfaces, including countertop s, pens, chairs, door handles, light switches, etc, prior to and following the patient s visit. [id number] Amairani Courtney [facility] [address],[place] [address] 11/06/2020 11:38:28 11/06/2020 13:43:24 Genital lichen sclerosus [id number] L90.0 Vulvar bx results reviewedH/ O given on LS She is doing VERY well with mycolog regimen.Sh e is moisturizi ng daily & now only needs mycolog 1-2x a wk prn.She is continuing to use premarin vag cream 2x/wk which has helped make SA more comfortabl e. We agreed to continue this regimen at this time & f/u in 6mos-1yr. If needs refills let us know but has enough medication at this time. Time spent in visit is a total of 15 mins with at least 50% of visit consisting of counseling and review of plan of care.Addit ional precaution katerina measures were taken to minimize potential exposure to the Covid-19 virus during this patient s visit, including available hand library information technician upon arrive, temperatur e check and being asked a series of screening questions. All staff wore face coverings during this encounter, as well as provided additional cleaning and sanitizing of all surfaces, including countertop s, pens, chairs, door handles, light switches, etc, prior to and following the patient s visit. [id number] Amairani Courtney [facility] [address],[place] [address] 09/26/2021 10:55:37 09/26/2021 12:13:14 Gynecologic examination [id number] Z01.419 Z11.51 Take Calcium with Vitamin D 12-1500mg daily. Do monthly self breast exams. It is advised to get annual flu shot in the fall and she could obtain at [facility] or [facility] care clinic. If you haven't received the Tdap vaccine in the last 10 years you should obtain one as well. Have mammogram yearly, bone density every 2-3 years and colonoscop y every 5-10 years depending on findings and history. Engage in daily exercise of low impact aerobic exercise 45-60 minutes 4-5 times weekly. Avoid tobacco and illicit drugs as well as using moderation with alcohol intake less than 1-2 8 oz beverages daily. This lifestyle behavior pattern will lead to less health conditions and longer life span. If BMI greater than 25 weight watchers or dietary consult advised. Questions have been answered. Patient appears to understand instructio ns, but if you have any further questions call or respond to this email Pap/hpv due q3yrs unless otherwise indicated. STD Screen declinedGe netic Screen discussedC olon Screen UTD PCPDexa Screen UTD PCPRoutine Labs UTD PCPMammo Ordered Screening mammography 24 741399 Z12.31 Genital li lopez sclerosus [id number] L90.0 Today we discussed trial of Clobetasol ointment & reviewed again VCG's especially daily moisturizi ng.Will call if issues. [id number] [facility] Court[facility] [address] [address] 11/17/2022 15:55:27 11/17/2022 17:00:09 Erythematous rash [id number] R21 Significan t red rash present on vulva traveling up through buttocks a few random spots on inner thigh present; this has been present for almost 2mos but has gotten worse this past week. I have advised to Call Derm for appointmen t if this ointment does not help; in addition follow the written instructio ns that will help decrease contact irritants; and also avoid inflaming this area any further. No testing sent as there is no d/c or drainage. Time spent in visit is a total of 15 mins with at least 50% of visit consisting of counseling and review of plan of care. [id number] Brandy Gracie [place] [address] [address] 01/30/2024 10:36:45 01/30/2024 11:22:35 Gynecologic examination [id number] Z01.419 Annual gynecologi carmelina exam performed. Patient will come back in a year unless there are new symptoms. Suggest Calcium with Vitamin D if not eating in diet. Patient advised to get annual flu shot. Recommend yearly physicals and perform monthly breast exams. Genetic testing is available for patients with family history of cancer. Engage in safe sexual practices, use condoms. Encouraged to have daily exercise. Avoid tobacco and illicit drugs, moderation of alcohol. If BMI greater than 25 dietary consult advised. If you have any questions please call or email. mammogram- DUE; pt to schedule colon cancer screening - DUE; GI referral Pap smear- pap w/ HPV updated today laboratory evaluation - PCP STI testing - declined Genital li lopez sclerosus [id number] L90.0 Refilled clobetasol 0.05% topical ointment to apply to vulva BID PRNContinu e to follow-up with dermatolog ist routinely. Discussed vulvar care guidelines in addition to laundry/sk in irritants to avoid. Screening mammography 24 587825 Z12.31 Screening for malignant neoplasm of colon [id number] Z12.11 GI referral to [facility] Screening colonoscopy 44 8834465 Z12.11 Candidiasis of skin 4988 3006 B37.2 Keep affected areas clean and dry.Rx Nystatin topical powder to apply twice daily as needed to treat intertrigo of abdominal fold and under breasts. Health Concerns Section Related Observation LastModified by Organization Detai ls LastModified Time None Recorded Concern Status LastModified by Organization Details LastModified Time None Recorded Advance Directives Directive None Recorded Payers Encounter Date Sequence Insurance Name Policy Number Policy Pearl Covered Member ID Pearl Member ID Guarantor Name 10/02/2020 1 [employer] (POS II) Emmett Johnson [id number] Pamela Johnson 11/06/2020 1 [employer] (POS II) Emmett Johnson [id number] Pamela Johnson 09/26/2021 1 [employer] (POS II) Emmett Johnson [id number] Pamela Johnson 11/17/2022 1 [employer] (POS II) Emmett Johnson [id number] Pamela Johnson 01/30/2024 1 [employer] II) Emmett Johnson [id number] Pamela Johnson Notes Date Note Type Note Provider Name and Address Organization Details Recorded Time 10/02/2020 text/html Here for vulvar biopsy for suspected LS. [facility] [address], [place], [address], [facility] 10/03/2020 15:52:52 11/06/2020 text/html Here today to review vulvar biospy results. Amairani Courtney [facility] [address], [place], [address], [facility] 11/06/2020 13:36:38 09/26/2021 text/html Annual Personnel Consultant Post-MenopausalRep orted bypatient.Menopaus al Symptoms:no menopausal symptoms; normal vaginal lubrication Vaginal Bleeding:history of menopause having occurred; no history of post menopausal bleeding Urinary Symptoms:no hematuria; no incontinence; no nocturia; no urinary frequency Vulva:no genital lesion; no vulvar atrophy Vagina:normal vaginal discharge; no vaginal atrophy Breast:no breast lump; no nipple discharge; no breast pain Sexual Complaints:no sexual complaints Psychological Symptoms:no depression; no anxiety Preventive Measures:encourage regular mammograms starting age 40; encourage self breast examination; encourage regular exercise; encourage no tobacco use; needs to schedule mammogram; history of recent colonoscopy [facility] [address], [place], [address], [facility] 09/26/2021 11:39:11 11/17/2022 text/html Here today for vulva/groin/buttoc ks rash, itchy, irritated, burning feeling.She denies new products or other possible contact irritants that she can recal.[place] but this rash has been present for almost 2mos and stayed fairly localized.Does have a Hx of lichen's sclerosis but it has been well managed. Tried diaper rash ointment not helpful.Tried Cloebetasol -only helpful for short amt of time.No lesionsNeg pain of abd/pelvis/flankNe g urinary sx'sNeg GI sx'sNeg N/V/F/C/DNeg Vag d/c, odor, irritation, itching Amairani Courtney, [place]- [address], [place], [address], [facility] 11/17/2022 16:55:09 01/30/2024 text/html Annual Personnel Consultant Post-MenopausalRep orted bypatient.Menopaus al Symptoms:no menopausal symptoms; normal vaginal lubrication Vaginal Bleeding:history of menopause having occurred; no history of post menopausal bleeding Urinary Symptoms:no hematuria; no incontinence; no nocturia; no urinary frequency Vulva:no genital lesion;atrophic vulva; lichen sclerosis Vagina:normal vaginal discharge;atrophic vagina Breast:no breast lump; no nipple discharge; no breast pain Sexual Complaints:no sexual complaints Psychological Symptoms:no depression; no anxiety Preventive Measures:encourage regular mammograms starting age 40; encourage self breast examination; encourage regular exercise; encourage no tobacco use Patient presents for annual well woman exam.Patient reports hx of lichen sclerosis; sees supervisor refractory products. Patient reports current flare of vulvar irritation. Patient requests refill of clobetasol ointment.Patient also reports intermittent moisture and itching under abdominal and breast folds. Brandy carrillo, [facility] 01/30/2024 11:31:25 OBGyn Episode Ob Episode Information Episode Created Date Number of Fetuses Patient Bloodtype Patient rh Status Prepregnancy Weight lbs Domestic Partner Domestic Partner Phone Father Name Workforce Staffing Advisor Status 09/20/19 21 1 CLOSED Fetus Data First Name Last Name Admitted to NICU Weight (g) Sex Living Outcome Pediatric Complications Fetus ID Race Codes Race Delivery Type 3175.14 4 F Full Term [id number] Vaginal Delivery Claudio Calculation Initial Claudio Date Initial Exam Date Initial Exam Provider Initial Ultrasound Date Last Menstrual Period Date Ultra Sound Weeks Gestation 0 Eighteen To Twenty Week Claudio Update Ultra Sound Date Fundal Height At Umbil Quickening Date Ultra Sound Latest Weeks Gestation Final Claudio Confirmed By Final Claudio Confirmed Date Final Claudio Date Ultra Sound Latest Days Gestation 0 0 Menstrual History Last Menstrual Date Menses Monthly On Bcp Conception Prior Menses Frequency Hcg Plus Date Menarche Onset Age Delivery Information Delivery Date Delivery Type Labor Anesthesia Weeks Gestation Incision Type Labor Labor Length Hrs Delivered By Post Complications Tubal Sterilization Discharge Date Comments 7 40 Discharge Information Feeding Method Contraceptive Method Maternal HG B and HCT Levels Ob Episode Information Episode Created Date Number of Fetuses Patient Bloodtype Patient rh Status Prepregnancy Weight lbs Domestic Partner Domestic Partner Phone Father Name Workforce Staffing Advisor Status 09/20/19 21 1 CLOSED Fetus Data First Name Last Name Admitted to NICU Weight (g) Sex Living Outcome Pediatric Complications Fetus ID Race Codes Race Delivery Type 3005.04 7 M Full Term [id number] Vaginal Delivery Claudio Calculation Initial Claudio Date Initial Exam Date Initial Exam Provider Initial Ultrasound Date Last Menstrual Period Date Ultra Sound Weeks Gestation 0 Eighteen To Twenty Week Claudio Update Ultra Sound Date Fundal Height At Umbil Quickening Date Ultra Sound Latest Weeks Gestation Final Claudio Confirmed By Final Claudio Confirmed Date Final Claudio Date Ultra Sound Latest Days Gestation 0 0 Menstrual History Last Menstrual Date Menses Monthly On Bcp Conception Prior Menses Frequency Hcg Plus Date Menarche Onset Age Delivery Information Delivery Date Delivery Type Labor Anesthesia Weeks Gestation Incision Type Labor Labor Length Hrs Delivered By Post Complications Tubal Sterilization Discharge Date Comments 9 40 Discharge Information Feeding Method Contraceptive Method Maternal HG B and HCT Levels
[2024-05-07 09:09] VITALS: BP 149/83; PULSE 73; RESP 16; TEMP 36.4; O2SAT 99
[2024-05-07] MEDS: LACTATED RINGERS 1,000 ML 150 ML IV CONT (09:21)
[2024-05-07 09:22] LABS: Glucose Point of Care 111 mg/dl (65-105)
--- NOTE | 2024-05-07 09:43 | P.HP_ITS ---
History of Present Illness History of Present Illness Consent: Risks, benefits, and alternatives have been discussed and questions answered. Patient agrees to proceed with procedure. Chief complaint: screening colon Narrative: Pamela Johnson is a 59 year old female here for screening colonoscopy, last one 5 years ago Review of Systems Review of Systems: All systems reviewed & are unremarkable except as noted in HPI and below PMFSH Past Medical History Medical History (Updated 10/17/23 @ 14:55 by Carl Sol MD) Controlled diabetes mellitus without complication, without long-term current use of insulin (~10/13/23) Glucose 111 on 04/15/2021. Glucose 103 with hemoglobin A1c 5.7 on 10/07/2021. Glucose 107 with hemoglobin A1c 5.8 on 09/20/2022. glucose 119 with hemoglobin A1c 5.8 on 03/25/2023. fasting glucose 124 with hemoglobin A1c 6.2 with GFR 80 on 10/13/2023. Diarrhea Acute bronchitis Cerebral microvascular disease (~2021) noted on MRI of the brain 02/02/2022. BMI 30.0-30.9,adult Obesity (BMI 30.0-34.9) Lichen sclerosus trunk and vaginal treated by experimental technician with labial biopsy positive for lichen sclerosis 2021. Mixed hyperlipidemia total cholesterol 191, HDL 49, triglycerides 123, LDL 119 on 06/06/2020. Total cholesterol 146, HDL 52, triglycerides 96, LDL 76 on 03/09/2022. cholesterol 161, HDL 55, triglycerides 41, LDL 82 with ratio 2.9 on 09/20/2022. Cholesterol 218, triglycerides 116, HDL 62 with LDL 134 with ratio 3.5 on 10/13/2023. Abnormal brain MRI (12/29/21) abnormal findings of brain on MRI of the C-spine on 12/29/2021 patchy hyperintense signals in the karine and asymmetry of the archie medullary cistern with infrahyoid 1.2 cm mass also. MRI of the brain on 02/02/2022 reveals moderate patchy lesions suggestive of microvascular disease. Chronic neck pain (~2021) MRI of the cervical spine on 12/29/2021 reveals moderate to severe degenerative disc disease C4-C5 and C5-C6 with 1.2 cm nodule right neck infrahyoid area with possible thyroid nodule or lymph node. Lesions noted on brain which might represent microvascular disease. Lower abdominal pain COVID-19 (08/16/21) tested positive 08/17/2021. Overweight (BMI 25.0-29.9) Eczema (~09/07/21) eczematous patches on back 09/07/2021. Biopsy showed lichen sclerosis. BMI 29.0-29.9,adult Acute cholecystitis Cholecystectomy Acute pancreatitis (~03/21/21) Iron deficiency anemia, unspecified (06/06/20) ferritin level low at 5, iron 19 with 4% saturation and TIBC 488. Iron low at 24 with 6% saturation on 04/15/2021. Iron 93 with 26% saturation and ferritin 45 with hemoglobin 14.3, vitamin B12 337, folic acid 8.2 on 10/07/2021. iron 52 with 15% saturation and ferritin 54 on 03/09/2022. BMI 33.0-33.9,adult Breast cancer screening by mammogram Normal mammogram 02/03/2021 ordered by client experience specialist. Colon cancer screening Umbilical hernia treated surgically Hypersomnia Gastritis Encounter for screening for other viral diseases COVID antibody test on 06/06/2020 was negative Folic acid deficiency Folic acid normal at 14.7 with hemoglobin 14.1 On 03/09/2022. Level greater than 24 with hemoglobin 13.6 on 09/20/2022. Normal at greater than 24 with hemoglobin 14.8 on 10/13/2023. Anemia (06/06/20) hemoglobin 8.9 on 06/06/2020. Hemoglobin 14.1 03/09/2022. Hemoglobin 13.6 on 09/20/2022. Hemoglobin 14.8 With iron 68 with 18% saturation and ferritin 72 on 10/13/2023. Other herpes zoster eye disease Vitamin B12 deficiency anemia, unspecified Vitamin B12 slightly low at 337 with goal greater than 400 on 10/07/2021 with folic acid 8.2. Level normal at 1384 with hemoglobin 14.1 on 03/09/2022. Normal at 1047 on 09/20/2022. Level normal at 1723 on 10/13/2023. Chronic bilateral low back pain with left-sided sciatica MRI of the lumbar spine on 12/14/2021 reveals degenerative disc disease and facet arthropathy worst at L4-L5 and L5-S1. Chronic depression Anxiety disorder, unspecified Moderate persistent asthma, uncomplicated Insomnia, unspecified Chronic GERD Elevated fasting glucose Glucose 111 on 04/15/2021. Glucose 103 with hemoglobin A1c 5.7 on 10/07/2021. Glucose 107 with hemoglobin A1c 5.8 on 09/20/2022. glucose 119 with hemoglobin A1c 5.8 on 03/25/2023. Benign essential HTN Surgical History Surgical History History of tonsillectomy History of esophagogastroduodenoscopy (EGD) History of colonoscopy Family History Family History Father , age 53 Heart disease Mother Hypertension Social History Social History (Updated 10/17/23 @ 13:54 by Glo Abdi MA) Smoking status: Never smoker Alcohol intake: current Drinks per week: 14 Alcohol use details: beer Substance use: never Substance use type: does not use Lack of Transportation: No Lack of Food: Never True Current Housing: I Have Housing Concerned About Future Housing: No Difficulty Paying Gas/Electric Bills: No Difficulty Paying for Meds: No Currently Unemployed: No Education: High School Diploma/GED Difficulty w/ Childcare or Family Care: No Living arrangements: with family Occupation/Education: occupation 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 Gender identity (if verbalized by the patient): Female Meds Home Medications and Allergies Home Medications ?Medication ?Instructions ?Recorded ?Confirmed ?Type magnesium 250 mg tablet 250 mg PO DAILY 12/29/18 05/07/24 History folic acid 1 mg tablet 1 mg PO DAILY #90 tabs 06/09/20 05/07/24 Rx ferrous sulfate 325 mg (65 mg 325 mg PO DAILY 04/26/21 04/23/24 History iron) tablet clobetasol 0.05 % topical ointment 1 applic topical BID 03/11/22 05/07/24 History alprazolam 0.25 mg tablet 0.25 mg PO BID PRN anxiety #60 tabs 04/19/23 04/23/24 Rx omeprazole 40 mg capsule,delayed 40 mg PO BID #180 caps 07/06/23 05/07/24 Rx release mometasone-formoterol HFA 200 2 puff inhalation BID #39 grams 07/14/23 05/07/24 Rx mcg-5 mcg/actuation aerosol inhaler (Dulera) azelastine 0.05 % eye drops 1 drp ophthalmic (eye) BID PRN 08/02/23 04/23/24 Rx itching eyes #6 mL nebivolol 20 mg tablet (Bystolic) 20 mg PO DAILY #90 tabs 08/10/23 05/07/24 Rx sumatriptan succinate 100 mg tablet See Rx Instructions PO .COMPLEX #7 08/12/23 04/23/24 Rx tabs albuterol 90 mcg-budesonide 80 2 inh inhalation QID PRN shortness 10/17/23 05/07/24 Rx mcg/actuation HFA aerosol inhaler of breath #10.7 grams (Airsupra) amlodipine 2.5 mg tablet 2.5 mg PO DAILY #90 tabs 10/17/23 05/07/24 Rx atorvastatin 40 mg tablet 40 mg PO DAILY #90 tabs 10/17/23 05/07/24 Rx buspirone 5 mg tablet 5 mg PO BID #180 tabs 10/17/23 05/07/24 Rx celecoxib 200 mg capsule (Celebrex) 200 mg PO BID PRN pain #180 caps 10/17/23 05/07/24 Rx metformin 500 mg tablet,extended 500 mg PO BID #180 tabs 10/17/23 05/07/24 Rx release 24 hr venlafaxine 75 mg capsule,extended 75 mg PO DAILY #90 caps 10/17/23 05/07/24 Rx release 24 hr zolpidem 10 mg tablet 10 mg PO . Q.h.s. PRN insomnia 02/07/24 04/23/24 Rx #30 tabs Allergies Allergy/AdvReac Type Severity Reaction Status Date / Time No Known Allergies Allergy Verified 05/07/24 09:04 Vital Signs Vital Signs - 24 hr 05/07/24 09:09 Temperature 97.6 F Pulse Rate 73 Respiratory Rate 16 Blood Pressure 149/83 H Pulse Oximetry 99 Oxygen Delivery Room Air Exam Const: General: comfortable and no acute distress HENMT: Face/Nose/Sinus: Normal nares present Eyes: General: appearance normal, both eyes and all related structures Neck: Neck: no JVD Resp: Auscultation: clear to auscultation bilaterally Cardio: Rate: regular rate Rhythm: regular rhythm GI: Inspection: non-distended GI Palp: Yes Soft to palpation Skin: General skin exam: normal color Neuro: General: gait normal Speech: normal speech Extrem: General: normal to inspection Psych: Mental Status: mental status grossly normal Assessment and Plan Assessment and plan (1) Colon cancer screening: Code(s): Z12.11 - Encounter for screening for malignant neoplasm of colon Status: Acute Assessment and Plan: colonoscopy
--- NOTE | 2024-05-07 09:46 | P.PNAN_ITS ---
Anes - Initial Pre Proc Eval Procedure: Operation Date: 05/07/24 10:00 Proposed Procedures p Screening Colonoscopy - Catrachito Granda MD Date/Time: 05/07/24 09:46 Surgeon: Catrachito Granda MD Pre Op Diagnosis: screening colon Patient Data Age: 59 Gender: F Height: 1.63 m Weight: 83 kg Last Vital Signs Temp 36.4 C 05/07/24 09:09 Pulse 73 05/07/24 09:09 Resp 16 05/07/24 09:09 BP 149/83 H 05/07/24 09:09 Pulse Ox 99 05/07/24 09:09 O2 Del Method Room Air 05/07/24 09:09 Allergies Allergy/AdvReac Type Severity Reaction Status Date / Time No Known Allergies Allergy Verified 05/07/24 09:04 Home Medications ?Medication ?Instructions ?Recorded ?Confirmed ?Type magnesium 250 mg tablet 250 mg PO DAILY 12/29/18 05/07/24 History folic acid 1 mg tablet 1 mg PO DAILY #90 tabs 06/09/20 05/07/24 Rx ferrous sulfate 325 mg (65 mg 325 mg PO DAILY 04/26/21 04/23/24 History iron) tablet clobetasol 0.05 % topical ointment 1 applic topical BID 03/11/22 05/07/24 History alprazolam 0.25 mg tablet 0.25 mg PO BID PRN anxiety #60 tabs 04/19/23 04/23/24 Rx omeprazole 40 mg capsule,delayed 40 mg PO BID #180 caps 07/06/23 05/07/24 Rx release mometasone-formoterol HFA 200 2 puff inhalation BID #39 grams 07/14/23 05/07/24 Rx mcg-5 mcg/actuation aerosol inhaler (Dulera) azelastine 0.05 % eye drops 1 drp ophthalmic (eye) BID PRN 08/02/23 04/23/24 Rx itching eyes #6 mL nebivolol 20 mg tablet (Bystolic) 20 mg PO DAILY #90 tabs 08/10/23 05/07/24 Rx sumatriptan succinate 100 mg tablet See Rx Instructions PO .COMPLEX #7 08/12/23 04/23/24 Rx tabs albuterol 90 mcg-budesonide 80 2 inh inhalation QID PRN shortness 10/17/23 05/07/24 Rx mcg/actuation HFA aerosol inhaler of breath #10.7 grams (Airsupra) amlodipine 2.5 mg tablet 2.5 mg PO DAILY #90 tabs 10/17/23 05/07/24 Rx atorvastatin 40 mg tablet 40 mg PO DAILY #90 tabs 10/17/23 05/07/24 Rx buspirone 5 mg tablet 5 mg PO BID #180 tabs 10/17/23 05/07/24 Rx celecoxib 200 mg capsule (Celebrex) 200 mg PO BID PRN pain #180 caps 10/17/23 05/07/24 Rx metformin 500 mg tablet,extended 500 mg PO BID #180 tabs 10/17/23 05/07/24 Rx release 24 hr venlafaxine 75 mg capsule,extended 75 mg PO DAILY #90 caps 10/17/23 05/07/24 Rx release 24 hr zolpidem 10 mg tablet 10 mg PO . Q.h.s. PRN insomnia 02/07/24 04/23/24 Rx #30 tabs Laboratory Tests 05/07/24 09:18 POC Capillary Glucose 111 H mg/dl (65-105) Patient hx anesthesia problems: none Family hx anesthesia problems: none Results Review: All pre-operative results and documents have been reviewed as part of the pre- operative evaluation. [facility] Past Medical History Medical History Controlled diabetes mellitus without complication, without long-term current use of insulin (~10/13/23) Glucose 111 on 04/15/2021. Glucose 103 with hemoglobin A1c 5.7 on 10/07/2021. Glucose 107 with hemoglobin A1c 5.8 on 09/20/2022. glucose 119 with hemoglobin A1c 5.8 on 03/25/2023. fasting glucose 124 with hemoglobin A1c 6.2 with GFR 80 on 10/13/2023. Diarrhea Acute bronchitis Cerebral microvascular disease (~2021) noted on MRI of the brain 02/02/2022. BMI 30.0-30.9,adult Obesity (BMI 30.0-34.9) Lichen sclerosus trunk and vaginal treated by maintenance worker swimming pool with labial biopsy positive for lichen sclerosis 2021. Mixed hyperlipidemia total cholesterol 191, HDL 49, triglycerides 123, LDL 119 on 06/06/2020. Total cholesterol 146, HDL 52, triglycerides 96, LDL 76 on 03/09/2022. cholesterol 161, HDL 55, triglycerides 41, LDL 82 with ratio 2.9 on 09/20/2022. Cholesterol 218, triglycerides 116, HDL 62 with LDL 134 with ratio 3.5 on 10/13/2023. Abnormal brain MRI (12/29/21) abnormal findings of brain on MRI of the C-spine on 12/29/2021 patchy hyperintense signals in the karine and asymmetry of the archie medullary cistern with infrahyoid 1.2 cm mass also. MRI of the brain on 02/02/2022 reveals moderate patchy lesions suggestive of microvascular disease. Chronic neck pain (~2021) MRI of the cervical spine on 12/29/2021 reveals moderate to severe degenerative disc disease C4-C5 and C5-C6 with 1.2 cm nodule right neck infrahyoid area with possible thyroid nodule or lymph node. Lesions noted on brain which might represent microvascular disease. Lower abdominal pain COVID-19 (08/16/21) tested positive 08/17/2021. Overweight (BMI 25.0-29.9) Eczema (~09/07/21) eczematous patches on back 09/07/2021. Biopsy showed lichen sclerosis. BMI 29.0-29.9,adult Acute cholecystitis Cholecystectomy Acute pancreatitis (~03/21/21) Iron deficiency anemia, unspecified (06/06/20) ferritin level low at 5, iron 19 with 4% saturation and TIBC 488. Iron low at 24 with 6% saturation on 04/15/2021. Iron 93 with 26% saturation and ferritin 45 with hemoglobin 14.3, vitamin B12 337, folic acid 8.2 on 10/07/2021. iron 52 with 15% saturation and ferritin 54 on 03/09/2022. BMI 33.0-33.9,adult Breast cancer screening by mammogram Normal mammogram 02/03/2021 ordered by validation scientist. Colon cancer screening Umbilical hernia treated surgically Hypersomnia Gastritis Encounter for screening for other viral diseases COVID antibody test on 06/06/2020 was negative Folic acid deficiency Folic acid normal at 14.7 with hemoglobin 14.1 On 03/09/2022. Level greater than 24 with hemoglobin 13.6 on 09/20/2022. Normal at greater than 24 with hemoglobin 14.8 on 10/13/2023. Anemia (06/06/20) hemoglobin 8.9 on 06/06/2020. Hemoglobin 14.1 03/09/2022. Hemoglobin 13.6 on 09/20/2022. Hemoglobin 14.8 With iron 68 with 18% saturation and ferritin 72 on 10/13/2023. Other herpes zoster eye disease Vitamin B12 deficiency anemia, unspecified Vitamin B12 slightly low at 337 with goal greater than 400 on 10/07/2021 with folic acid 8.2. Level normal at 1384 with hemoglobin 14.1 on 03/09/2022. Normal at 1047 on 09/20/2022. Level normal at 1723 on 10/13/2023. Chronic bilateral low back pain with left-sided sciatica MRI of the lumbar spine on 12/14/2021 reveals degenerative disc disease and facet arthropathy worst at L4-L5 and L5-S1. Chronic depression Anxiety disorder, unspecified Moderate persistent asthma, uncomplicated Insomnia, unspecified Chronic GERD Elevated fasting glucose Glucose 111 on 04/15/2021. Glucose 103 with hemoglobin A1c 5.7 on 10/07/2021. Glucose 107 with hemoglobin A1c 5.8 on 09/20/2022. glucose 119 with hemoglobin A1c 5.8 on 03/25/2023. Benign essential HTN Surgical History Surgical History History of tonsillectomy History of esophagogastroduodenoscopy (EGD) History of colonoscopy Family History Family History Father , age 53 Heart disease Mother Hypertension Social History Social History Smoking status: Never smoker Alcohol intake: current Drinks per week: 14 Alcohol use details: beer Substance use: never Substance use type: does not use Lack of Transportation: No Lack of Food: Never True Current Housing: I Have Housing Concerned About Future Housing: No Difficulty Paying Gas/Electric Bills: No Difficulty Paying for Meds: No Currently Unemployed: No Education: High School Diploma/GED Difficulty w/ Childcare or Family Care: No Living arrangements: with family Occupation/Education: occupation 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 Informed Consent: The patient's anesthetic plan and its attendant risks and benefits were discussed with the patient/family/POA. Questions were solicited and answers provided to the satisfaction of the patient/family/POA.
[2024-05-07 10:02] VITALS: BP 108/61; PULSE 78; RESP 15; O2SAT 95
[2024-05-07 10:12] VITALS: BP 100/71; PULSE 76; RESP 15; O2SAT 95
[2024-05-07 10:22] VITALS: BP 110/68; PULSE 63; RESP 16; O2SAT 96
== END 2024-05-07 10:28 | disposition home or self-care (01) ==
PROVIDERS: PCP Family Medicine; Visit Provider Internal Medicine Gastroenterology
PROC: 0DJD8ZZ Inspection of Lower Intestinal Tract, Via Natural or Artificial Opening Endoscopic (ICD-10-PCS; CPT 45378; principal; 2024-05-07 10:00)
DX: Z12.11 Encounter for screening for malignant neoplasm of colon (principal); K64.8 Other hemorrhoids; E11.9 Type 2 diabetes mellitus without complications; E66.9 Obesity, unspecified; Z68.31 Body mass index [BMI] 31.0-31.9, adult
CPT/HCPCS: 45378; 82948; J2003; J2704; J7120

== ENCOUNTER 2024-11-25 11:27 | Emergency (ER) | payer OTHER, SELFPAY ==
--- NOTE | ~2024-11-25 | XR_ITS ---
Examination: XR wrist LT min 3V Clinical History: fall, Lt. wrist pain/ limited ROM Comparison: None Technique: 4 views left wrist Findings/impression: 1. Minimally displaced impacted fracture distal radius with articular surface involvement. 2. Nondisplaced fracture distal ulna. 3. Moderate degenerative changes basal joint of thumb. Reviewed, dictated and finalized at location R.
--- OUTSIDE RECORDS SUMMARY | 2024-11-25 11:29 | XMS_ITS | Clinical Summary ---
Author Organization [facility] Address [address] [place] [address] Phone Care Team Providers Care Type Copy Examiner Name Role Phone Carl Sol MD Primary Care Provider [phone] Allergies No known active allergies Medications SUMAtriptan [...] Comments Blood Pressure 137/94 02/13/2018 9:42 AM SUPERVISOR INSPECTION ROOM Pulse 73 02/13/2018 8:20 AM SUPERVISOR INSPECTION ROOM Temperature 36 C (96.8 F) 02/13/2018 9:42 AM SUPERVISOR INSPECTION ROOM Respiratory Rate 19 02/13/2018 9:42 AM SUPERVISOR INSPECTION ROOM Oxygen Saturation 100% 02/13/2018 9:42 AM SUPERVISOR INSPECTION ROOM Inhaled Oxygen Concentration - - Weight 79.4 kg (175 lb) 01/23/2018 11:00 AM SUPERVISOR INSPECTION ROOM Height 162.6 cm (5' 4) 01/23/2018 11:00 AM SUPERVISOR INSPECTION ROOM Body Mass Index 30.04 01/23/2018 11:00 AM SUPERVISOR INSPECTION ROOM Plan of Treatment Health Maintenance Due Date Last Done Comments Hepatitis C Virus (HCV) Screening 1965 TdaP Immunization 1963 Pap Smear 1984 Cervical Cancer Screening (CCS) 1993 HPV/Cotest 1993 Cologuard 2008 Immunochemical Fecal Occult Blood 2008 Pneumococcal Immunization (5 0+ years) (1 of 1 - PCV) 2013 Zoster Immunization (1 of 2) 2013 Influenza Immunization (#1) 2024 SARS-COV-2 Immunization ( - 2023- season) 2024 Colonoscopy 02/07/2028 02/06/2018 Colorectal Cancer Screening 02/07/2028 Respiratory Syncytial Virus (RSV) Immunization (Adult) (1 - 1-dose 75+ series) 2038 Hepatitis B Immunization Aged Out No longer eligible based on patient's age to complete this topic Human Papillomavirus (HPV) Immunization Aged Out No longer eligible b ased on patient's age to complete this topic Meningococcal Immunization (ACWY) Aged Out No longer eligible based on patient's age to complete this topic Rotavirus Immunization Aged Out No lo nger eligible based on patient's age to complete this topic Care Teams Type Copy Examiner Relationship Specialty Start Date End Date Carl Sol MD [address] [address] PCP - General Family Medicine 08/11/17
--- OUTSIDE RECORDS SUMMARY | 2024-11-25 11:29 | XMS_ITS | Encounter Summary ---
Author Organization [facility] Address [address] [place] [place] [address] Care Team Providers Care Printed Circuit Board Panels Trimmer Name Role Phone Unavailable Primary Care Provider Unavailabl e Encounter Details Date Type Department Care Team (Late st Contact Info) Description 05/02/[address] [facility] - DermPath Lab [address] [place] [id number] Neel Gutierrez Jr., MD [address] [place] [address] Social History Tobacco Use Types Packs/Day Years Used Date Smoking Tobacco: Never Assessed Comments Unknown Sex and Gender Information Value Date Recorded Sex Assigned at Not on file Legal Sex Female 1:43 PM RADIOISOTOPE TECHNICIAN Gender Identity Not on file Sexual Orientation Not on file documented as of this encounter Plan of Treatment Not on file documented as of this encounter Procedures Procedure Name Priority Date/Time Associated Diagnosis Comments DERMATOPATHOLOGY Routine 04/29/2023 3:33 AM RADIOISOTOPE TECHNICIAN documented in this encounter Results * DERMATOPATHOLOGY (04/29/2023 3:33 AM RADIOISOTOPE TECHNICIAN) Case Report Dermatopathology Report Case: [id number] Authorizing Provider: Neel Gutierrez Jr., MD Collected: 04/29/2023 03:33 AM Ordering Location: [facility] - Received: 05/02/2023 02:09 PM DermPath Lab Pathologist: Le Rivera MD Specimen: Skin, right anterior proximal thigh 11:43 AM RADIOISOTOPE TECHNICIAN DERMATOPATHOLOGY LABORATORY Final Diagnosis Specimen A. SKIN, right anterior proximal thigh: ACTINIC KERATOSIS, LICHENOID (L57.0) 11:43 AM RADIOISOTOPE TECHNICIAN DERMATOPATHOLOGY LABORATORY at 1143 RADIOISOTOPE TECHNICIAN Clinical History Inflamed seborrheic Keratosis vs Basal Cell Carcinoma vs Squamous Cell Carcinoma. 11:43 AM [facility] DERMATOPATH[facility]Y [facility]ORATORY Gross Description Specimen A: Received is one formalin filled container labeled with the patient's name and designated right anterior proximal thigh. The specimen consists of a shave biopsy measuring 10x9x1 mm. Jar 0. 11:43 AM [facility] DERMATOPATHOLOGY LABORATORY Microscopic Description Specimen A. SKIN, right anterior proximal thigh: There is focal parakeratosis. The lower half of the epidermis shows disorderly maturation of keratinocytes with nuclear pleomorphism. The dermis shows a band-like, chronic inflammatory infiltrate with occasional apoptotic keratinocytes and some basal vacuolar alteration. 11:43 AM [facility] DERMATOPATHOLOGY LABORATORY Disclaimer An external and internal positive and negative controls are appropriate for the histochemical, immunohistochemical and immunofluorescence stain(s) in this case (if any), except where stated explicitly. The performance characteristics of the stain(s) cited in this report were developed and its performance characteristic determined by the Dermatopathology Laboratory at [facility], directed by Dr. Marli Garner. These tests need not be, and therefore are not, approved by the [place] Food and Drug Administration. The tests are used for clinical purposes. Billing Codes Specimen Charges Stain Charges 12620 1 11:43 AM [facility] DERMATOPATHOLOGY LABORATORY Embedded Images 11:43 AM [facility] DERMATOPATHOLOGY LABORATORY Pathology/Cytolo gy TISSUE SPECIMEN FROM SKIN / Unknown 04/29/2023 3:33 AM RADIOISOTOPE TECHNICIAN 05/02/2023 2:09 PM [facility] us Neel Gutierrez Jr., MD LAB - PATHOLOGY/CYTOLOG Y ORDERABLES Final Result DERMATOPATHOLOGY LABORATORY [facility] - Department of Dermatology [address] [place] [address], [facility] [phone] documented in this encounter Visit Diagnoses Not on filedocumented in this encounter
--- OUTSIDE RECORDS SUMMARY | 2024-11-25 11:29 | XMS_ITS | Clinical Summary ---
Author Organization [facility] [address] [place] [id number] Care Team Providers Care Medical Aides Teacher Name Role Phone Carl Sol MD Primary Care Provider [phone] Allergies No known active allergies Medications venlafaxine [...] 04/16/2021 Assessment & Plan (04/16/2021 8:39 AM COFFEE HOST): Diet as tolerated. Okay to return to work with light duty. No heavy lifting greater than 20 lb for 4 weeks. No submerging incisions for 4 weeks. Please call for any further questions or concerns. Ventral hernia with bowel obstruction 04/16/2021 Assessment & Plan (04/16/2021 8:40 AM COFFEE HOST): The patient had a known umbilical hernia. [...] CDT Gender Identity Female 04/03/2021 8:59 PM COFFEE HOST Sexual Orientation Straight 04/03/2021 8: 59 PM COFFEE HOST Obstetrics History Last Filed Vital Signs Vital Sign Reading Time Taken Comments Blood Pressure 110/74 04/26/2023 4:42 PM COFFEE HOST Pulse 83 04/26/2023 4:42 PM COFFEE HOST Temperature 36.8 C (98.2 F) 04/26/2023 5:56 PM COFFEE HOST Respiratory Rate 20 04/26/2023 4:42 PM COFFEE HOST Oxygen Saturation 97% 04/26/2023 5:56 PM COFFEE HOST Inhaled Oxygen Concentration - - Weight 84.4 kg (186 lb) 04/26/2023 4:42 PM COFFEE HOST Height 162.6 cm (5' 4) 04/26/2023 4:42 PM COFFEE HOST Body Mass Index 31.93 04/26/2023 4:42 PM COFFEE HOST Plan of Treatment Health Maintenance Due Date Last Done Comments Cervical Cancer Screening 1963 Colon Cancer Screening-Colonoscopy 1963 Depression Screening 1963 Hepatitis C Screening 1963 DTaP/Tdap/Td Vaccine (1 - Tdap) 1974 Hepatitis B Screening 1981 Regular Well Visit/Exam 18-64 1981 Pneumococcal vaccine <65 (1 of 2 - PCV) 1982 Zoster Vaccine (1 of 2) 2013 Breast Cancer Screening-Mammogram 02/04/2022 021 Influenza Vaccine (#1) 2024 Medical Devices Implanted Type Area Risk Reduction Counselor Device Identifier Shelf Expiration Date Model / Serial / Lot [employer]/C R Bard Ventralex St Sepra Sorbaflex 2.5in [place] Open Bioresorbable [id number] - [id number] Implanted:Qty: 1 on 11/29/2022 by Layton Steen MD at [facility] N/A: Umbilical [employer] 06/26/2023 [id number] / / [id number] Insurance T SIG [id number] [facility] CMR Advance Directives For more information, please contact: [phone] * Full Code (Latest Code Status on File) Date Activated Date Inactivated Comments 11/28/2022 1:31 AM 11/30/2022 6:16 PM Care Teams Medical Aides Teacher Relationship Specialty Start Date End Date Carl Sol MD [address] [address] PCP - General Family Medicine 11/16/19
--- NOTE | 2024-11-25 11:30 | ED_ITS ---
HPI - Extremity Injury (Upper) General Chief Complaint: Extremity Injury, Upper Stated Complaint: left arm pain Time Seen by Provider: 11/25/24 11:28 Source: patient Mode of arrival: ambulatory Limitations: no limitations History of Present Illness HPI narrative: 59 years old white female, tripped and fell Prior to arrival, broke her fall using her left hand, complaining of left wrist pain. She denies other injuries. Related Data Home Medications ?Medication ?Instructions ?Recorded ?Confirmed ?Last Taken ?Type magnesium 250 mg tablet 250 mg PO DAILY 12/29/1805/06/24 History ferrous sulfate 325 mg (65 mg 325 mg PO DAILY 04/26/21 05/28/24 Unknown History iron) tablet clobetasol 0.05 % topical ointment 1 applic topical BI D 03/11/22 05/28/24 05/06/24 History Allergies Allergy/AdvReac Type Severity Reaction Status Date / Time No Known Allergies Allergy Verified 05/07/24 09:04 Review of Systems Review of Systems: All systems reviewed & are unremarkable except as noted in HPI and below PMFSH Past Medical History Medical History Adult BMI 32.0-32.9 kg/sq m Controlled diabetes mellitus without complication, without long-term current use of insulin (~10/13/23) Glucose 111 on 04/15/2021. Glucose 103 with hemoglobin A1c 5.7 on 10/07/2021. Glucose 107 with hemoglobin A1c 5.8 on 09/20/2022. glucose 119 with hemoglobin A1c 5.8 on 03/25/2023. fasting glucose 124 with hemoglobin A1c 6.2 with GFR 80 on 10/13/2023. Glucose 111, hemoglobin A1c 6.1, urine microalbumin ratio of 2 with GFR 85 on 05/24/2024. Diarrhea Acute bronchitis Cerebral microvascular disease (~2021) noted on MRI of the brain 02/02/2022. BMI 30.0-30.9,adult Obesity (BMI 30.0-34.9) Lichen sclerosus trunk and vaginal treated by cytotechnologist/cytology supervisor with labial biopsy positive for lichen sclerosis 2021. Mixed hyperlipidemia total cholesterol 191, HDL 49, triglycerides 123, LDL 119 on 06/06/2020. Total cholesterol 146, HDL 52, triglycerides 96, LDL 76 on 03/09/2022. cholesterol 161, HDL 55, triglycerides 41, LDL 82 with ratio 2.9 on 09/20/2022. Cholesterol 218, triglycerides 116, HDL 62 with LDL 134 with ratio 3.5 on 10/13/2023.Cholesterol 144, triglycerides 80, HDL 50, LDL 78 with ratio 2.9 on 05/24/2024. Abnormal brain MRI (12/29/21) abnormal findings of brain on MRI of the C-spine on 12/29/2021 patchy hyperintense signals in the karine and asymmetry of the archie medullary cistern with infrahyoid 1.2 cm mass also. MRI of the brain on 02/02/2022 reveals moderate patchy lesions suggestive of microvascular disease. Chronic neck pain (~2021) MRI of the cervical spine on 12/29/2021 reveals moderate to severe degenerative disc disease C4-C5 and C5-C6 with 1.2 cm nodule right neck infrahyoid area with possible thyroid nodule or lymph node. Lesions noted on brain which might represent microvascular disease. Lower abdominal pain COVID-19 (08/16/21) tested positive 08/17/2021. Overweight (BMI 25.0-29.9) Eczema (~09/07/21) eczematous patches on back 09/07/2021. Biopsy showed lichen sclerosis. BMI 29.0-29.9,adult Acute cholecystitis Cholecystectomy Acute pancreatitis (~03/21/21) Iron deficiency anemia, unspecified (06/06/20) ferritin level low at 5, iron 19 with 4% saturation and TIBC 488. Iron low at 24 with 6% saturation on 04/15/2021. Iron 93 with 26% saturation and ferritin 45 with hemoglobin 14.3, vitamin B12 337, folic acid 8.2 on 10/07/2021. iron 52 with 15% saturation and ferritin 54 on 03/09/2022. BMI 33.0-33.9,adult Breast cancer screening by mammogram Normal mammogram 02/03/2021 ordered by [employer] manager. Colon cancer screening normal colonoscopy 05/07/2024 with recheck in 10 years. Umbilical hernia treated surgically Hypersomnia Gastritis Encounter for screening for other viral diseases COVID antibody test on 06/06/2020 was negative Folic acid deficiency Folic acid normal at 14.7 with hemoglobin 14.1 On 03/09/2022. Level greater than 24 with hemoglobin 13.6 on 09/20/2022. Normal at greater than 24 with hemoglobin 14.8 on 10/13/2023. Anemia (06/06/20) hemoglobin 8.9 on 06/06/2020. Hemoglobin 14.1 03/09/2022. Hemoglobin 13.6 on 09/20/2022. Hemoglobin 14.8 With iron 68 with 18% saturation and ferritin 72 on 10/13/2023. Other herpes zoster eye disease Vitamin B12 deficiency anemia, unspecified Vitamin B12 slightly low at 337 with goal greater than 400 on 10/07/2021 with folic acid 8.2. Level normal at 1384 with hemoglobin 14.1 on 03/09/2022. Normal at 1047 on 09/20/2022. Level normal at 1723 on 10/13/2023. Chronic bilateral low back pain with left-sided sciatica MRI of the lumbar spine on 12/14/2021 reveals degenerative disc disease and facet arthropathy worst at L4-L5 and L5-S1. Chronic depression Anxiety disorder, unspecified Moderate persistent asthma, uncomplicated Insomnia, unspecified Chronic GERD Elevated fasting glucose Glucose 111 on 04/15/2021. Glucose 103 with hemoglobin A1c 5.7 on 10/07/2021. Glucose 107 with hemoglobin A1c 5.8 on 09/20/2022. glucose 119 with hemoglobin A1c 5.8 on 03/25/2023. Benign essential HTN Surgical History Surgical History History of tonsillectomy History of esophagogastroduodenoscopy (EGD) History of colonoscopy Family History Family History Father , age 53 Heart disease Mother Hypertension Social History Social History Smoking status: Never smoker Alcohol intake: current Drinks per week: 14 Alcohol use details: beer Substance use: never Substance use type: does not use Lack of Transportation: No Lack of Food: Never True Current Housing: I Have Housing Concerned About Future Housing: No Difficulty Paying Gas/Electric Bills: No Difficulty Paying for Meds: No Currently Unemployed: No Education: High School Diploma/GED Difficulty w/ Childcare or Family Care: No Living arrangements: with family Occupation/Education: occupation 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 Musculoskeletal: left wrist showed diffuse tenderness, deformity, severe limited range of motion because of pain Neurologic: Alert and oriented ?3, [employer] is normal as tested, no gross motor deficit Course Vital Signs Vital signs: Vital Signs Temperature 36.6 C 11/25/24 11:34 Pulse Rate 64 11/25/24 11:34 Respiratory Rate 20 11/25/24 11:34 Blood Pressure 154/81 H 11/25/24 11:34 Pulse Oximetry 97 11/25/24 11:34 Oxygen Delivery Room Air 11/25/24 11:34 Temperature 36.6 C 11/25/24 11:34 Pulse Rate 64 11/25/24 11:34 Respiratory Rate 20 11/25/24 11:34 Blood Pressure 154/81 H 11/25/24 11:34 Pulse Oximetry 97 11/25/24 11:34 Oxygen Delivery Room Air 11/25/24 11:34 MDM - Extremity Injury (Upper) MDM Narrative Medical decision making narrative: left wrist pain after a fall Differential diagnosis include fracture, sprain, strain, contusion X-ray left wrist showed fracture distal radius and ulna, no displacement, no angulation Splint, sling, Desha, Follow-up with ortho in 3-5 days Critical Care Time Critical Care Time Critical Care Time: No Discharge Plan Discharge Clinical Impression: Fracture of left wrist Patient Disposition: Home Condition: Stable Instructions: Wrist Fracture in Adults (ED), How to Use a Sling (ED), Splint Care (ED) Additional Instructions: Return if symptoms are worsening , call Dr. Gaona for appointment, take ibuprofen as as needed for aches and pain, continue home medications. Keep left hand elevated above the level of the heart Ice pack 20 minutes/hour for the next 24 hours Patient Language: Welsh Prescriptions: New hydrocodone-acetaminophen 5-325 mg tablet 1 tablet PO Q4H Qty: 20 0RF No Action folic acid 1 mg tablet 1 mg PO DAILY Qty: 90 3RF clobetasol 0.05 % ointment 1 applic topical BID venlafaxine 75 mg capsule,extended release 24hr 75 mg PO DAILY Qty: 90 3RF Airsupra 90-80 mcg/actuation HFA aerosol inhaler 2 inh inhalation QID PRN (Reason: shortness of breath) Qty: 10.7 11RF Rx Instructions: as a single dose; may repeat up to 6 doses per day (12 inhalations) please use discount card. magnesium 250 mg tablet 250 mg PO DAILY ferrous sulfate 325 mg (65 mg iron) tablet 325 mg PO DAILY alprazolam 0.25 mg tablet 0.25 mg PO BID PRN (Reason: anxiety) Qty: 60 5RF Dulera 200-5 mcg/actuation HFA aerosol inhaler 2 puff INHALATION BID Qty: 39 3RF azelastine 0.05 % drops 1 drp ophthalmic (eye) BID PRN (Reason: itching eyes) Qty: 6 11RF sumatriptan succinate 100 mg tablet See Rx Instructions PO .COMPLEX Qty: 7 11RF Rx Instructions: Take 1 tablet by oral route after onset of migraine; may repeat after 2 hours if headache returns, not to exceed 200 mg in 24 hrs. nebivolol [Bystolic] 20 mg tablet 20 mg PO DAILY Qty: 90 3RF celecoxib [Celebrex] 200 mg capsule 200 mg PO BID PRN (Reason: pain) Qty: 180 3RF buspirone 5 mg tablet 5 mg PO BID Qty: 180 3RF atorvastatin 40 mg tablet 40 mg PO DAILY Qty: 90 3RF zolpidem 10 mg tablet 10 mg PO . Q.h.s. PRN (Reason: insomnia) Qty: 30 5RF omeprazole 40 mg capsule,delayed release(DR/EC) 40 mg PO BID Qty: 180 3RF metformin 500 mg tablet extended release 24 hr 500 mg PO BID Qty: 180 3RF Follow-up/Referrals: Carl Sol MD [Primary Care Provider, Family Practice] Vamshi Gaona MD [Physician, Orthopedics] - 11/27/24
--- OUTSIDE RECORDS SUMMARY | 2024-11-25 11:30 | XMS_ITS | Data Portability ---
Author Organization [facility] [place] Address [address] [place] [address] Care Team Providers Care Child Care Worker Name Role Phone MICHELLE BARNES Primary Care Provider Assessment Encounter Date Assessment Date Assessment LastModified by Organization Details LastModified Time 09/26/2021 09/26/2021 Annual gynecological exam performed. Patient will come back in a year unless there are new symptoms. [email or web address] Not available 09/26/2021 11:22:05 01/30/2024 01/30/2024 Annual gynecological exam performed. Patient will come back in a year unless there are new symptoms. [email or web address] Not available 01/30/2024 10:39:04 Plan of Treatment Reminders Order Date Submit Date Provider Last Modified By Organization Details Last Modified Time Details Appointments None recorded. Lab None recorded. Referral None recorded. Procedures colonoscopy screening (PROC) [address] - Gastroenterol ogy, [address], [address], [place], [address], 4 12:05:36 Surgeries None recorded. Imaging MAMMO, screening, digital, bilateral 2023 024 [facility], [address], [place], [address], 5 05:00:47 MAMMO, screening, bilateral 2021 022 [facility], [address] [place], [address], 2 15:04:39 Medication Orders nystatin 100,000 unit/gram topical powder 2023 024 [facility], [address], [place], [place], [id number], 4 11:19:35 clobetasol 0.05 % topical ointment 2023 024 [email or web address] [facility], [address], [place], [place], [id number], 4 11:16:15 clotrimazol e-betametha sone 1 %-0.05 % topical cream 2022 023 [email or web address] [facility], [address], [place], [place], [id number], 4 10:48:21 Diflucan 150 mg tablet 2022 023 [email or web address] [facility], [address], [place], [place], [id number], 4 10:48:28 clobetasol 0.05 % topical ointment 2021 022 [facility], [address], [place], [place], [id number], 2 11:34:31 nystatin-tr iamcinolone 100,000 unit/gram-0 .1 % topical ointment 2020 021 [email or web address] 1 [facility], [address], [place], [place], [id number], 2 11:22:43 Patient TargetsNo targets recorded. Patient [...] [id number] Autho maximino norman Provi teri: Clayton harris , Neeraj Díaz cted: 09/19 1355 FEATHER MIXER Order ing Locat ion: [place] Patho logy Recei tobi: 09/20 0053 First Scree n: [place] Go, CT Speci men: Ingrid resendiz Pap - Image d, Cervi x STATE MENT OF ADEQU ACY: Satis facto ry for evalu ation Trans forma tion zone compo nent prese nt FINAL DIAGN OSIS: Negat pavan for Intra epith elial Adin ernst or Denise agosto Elect mike balderas shantal d by Kenyetta Go, CT [...] is recom prateek d, as clini hien castro nted. Not Available [facility] (Lab) [address], [place], [address], 09/23/2020 14:09:50 10/03/19 21 10/02/2020 [facility]GI [facility] PATHO LOGY surgical pathology SEE RESULT S BELOW CASE REPOR T: Surgi carmelina Patho logy Repor t Case: [id number] Autho maximino norman Provi teri: Willie Muhammad Colle cted: 10/02 1600 FEATHER MIXER Order ing Locat ion: [place] Patho [place]y Recei tobi: 10/03 0108 Patho logis t: Tee Mac MD Speci men: Labia Minor a, Left, upper inner left labia minor a FINAL DIAGN OSIS: Vulva , left labia minor a, biops y: -Cons isten t with liche n scler osis at atrop hicus . Elect mike balderas shantal d by Tee Mac MD on 021 [...] ed by Rosa Quinones on Not Available [facility] (Lab) [address], [place], [address], 10/03/2020 15:31:27 01/30/20 24 01/30/2024 IMAGE GUIDE D PAP AND HPV REGAR DLESS image guided Pap, HPV regardless of Pap result SEE RESULT S BELOW CASE REPOR T: Cytol ogy Gynec ologi carmelina Repor t Case: [id number] Autho maximino norman Provi teri: Dermo dy, Savanah , ANP, LODGING FACILITIES MANAGER Colle cted: 01/29 1136 Order ing Locat ion: [place] Patho logy Recei tobi: 01/30 0207 First Scree n: DeLuc a, [place], CT Rescr een: Kingston Cheung , CT Speci men: Ingrid resendiz Pap - Image d, Cervi x STATE MENT OF ADEQU ACY: Satis facto ry for evalu ation Trans forma tion zone compo nent prese nt ----- ----- ----- ----- ----- ----- ----- ----- ----- ----- ----- ----- ----- ----- ----- ----- ----- ---- FINAL DIAGN OSIS: Negat pavan for Intra epith tia ernst or Denise agosto ([facility]) . Elect mike balderas shantal d by Kingston Cheung , CT on [...] Neopl chivo (if appli cable ): Signi flakita t Clini carmelina Findi ngs: Other Histo [...] is recom prateek d, as clini hien castro nted. Not Available [facility] (Lab) [address], [place], [address], 02/07/2024 18:40:32 02/05/20 21 02/03/2021 MAMMO , scree astrid, bilat eral No observ ation record ed. [facility] [address], [place], [address], 02/09/2021 20:24:04 Result Notes None recorded. Procedures Surgical History Date Name Laterality Status Provider Name and Address Organization Details Recorded Time 023 hernia repair completed Brandy Bowman [facility] 01/30/2024 10:51:59 022 cholecystectomy completed Macrina Felix [facility] 09/26/2021 11:25:23 021 Date of Last Mammogram completed Macrina Felix [facility] 09/26/2021 11:23:21 021 Vulvar Biopsy completed Amairani Courtney, [place]- [address], [place], [address], [facility] 10/02/2020 15:39:00 021 biopsy of vulva completed Beba Warren [facility] 08/20/2021 11:34:46 021 Date of Last Pap Smear completed Brandy Bowman [facility] 01/30/2024 10:40:02 015 endometrial biopsy completed Macrina Felix [facility] 10/19/2021 12:48:34 969 Tonsillectomy completed Macrina Felix [facility] 09/26/2021 11:25:10 Imaging Results None recorded. Procedure Notes None recorded. Medical Equipment None [...] % topical ointment APPLY A THIN LAYER TOPICALLY TO THE AFFECTED AREA(S) TWICE DAILY FOR 4 WEEKS, THEN ONCE DAILY FOR 4 WEEKS, THEN USE NEEDED 2024 active Not Available Not Available Not Avai [...] Not Available Not Available No t Available Klayesta 100,000 unit/gram topical powder APPLY TO THE AFFECTED AREA(S) TWICE DAILY NEEDED 2024 active Not Available Not Available Not Avai lable Vitals Date Recorded Systolic And Diastolic Provider Name and Address Organization Details Last Updated DateTime 09/26/2021 130/76 mm[Hg] Amairani Courtney, [facility] [address], [place], [address], [facility] 09/26/2021 11:37:36 Date Recorded Body height Body mass index (BMI) Body weight Provider Name and Address Organization Details Last Updated DateTime 09/26/2021 160.02 cm 30.3 kg/m2 26588.3 g Macrina Felix [facility] 09/26/2021 11:22:19 Date Recorded Body height Body mass index (BMI) Body weight Systolic And Diastolic Provider Name and Address Organization Details Last Updated DateTime 10/02/2020 160.02 cm 31.5 kg/m2 82090.44 g 133/83 mm[Hg] Lexus Villalobos [facility] 10/02/2020 15:02:53 Date Recorded Systolic And Diastolic Provider Name and Address Organization Details Last Updated DateTime 11/06/2020 130/80 mm[Hg] Amairani Courtney, [facility] [address], [place], [address], [facility] 11/06/2020 11:49:11 Date Recorded Body height Body mass index (BMI) Body weight Provider Name and Address Organization Details Last Updated DateTime 11/06/2020 160.02 cm 31.5 kg/m2 [address]892.[address] [facility] 11/06/2020 11:45:28 Date Recorded Body height Body mass index (BMI) Body weight Systolic And Diastolic Provider Name and Address Organization Details Last Updated DateTime 11/17/2022 160.02 cm 34 kg/m2 43812.02 g 130/83 mm[Hg] Saminabunny Catalansuad [facility] 11/17/2022 16:16:16 Date Recorded Body height Body mass index (BMI) Body weight Systolic And Diastolic Provider Name and Address Organization Details Last Updated DateTime 01/30/2024 160.02 cm 33.5 kg/m2 90548.96 g 135/84 mm[Hg] Brandy Bowman [facility] 01/30/2024 10:46:32 Social History Question Answer Notes LastModified by Organizat ion Details LastModified Time Tobacco Smoking Status Never Smoker Saminabunny Catalansuad [facility] 11/17/2022 16:16:43 Are You Blind Or Do You Have Difficulty Seeing? No Information n ot available 09/19/2020 What Is Your Level Of Caffeine Consumption? Occasional Information not available 09/19/2020 In The 14 Days Before Symptom Onset, Have You Had Close Contact With A Laboratory-confirm ed COVID-19 While That Case Was Ill? No [email or web address] Information n ot available 09/26/2021 In The 14 Days Before Symptom Onset, Have You Had Close Contact With A Person Who Is Under Investigation For COVID-19 While That Person Was Ill? No [email or web address] Information not available 09/26/2021 Have You Been To An Area Known To Be High Risk For COVID-19? No [email or web address] Information not available 09/26/2021 Are You Deaf Or Do You Have Serious Difficulty Hearing? No Information not available 09/19/2020 What Type Of Diet Are You Following? SPECIFIC Information n ot available 11/17/2022 What Is The Highest Grade Or Level Of School You Have Completed Or The Highest Degree You Have Received? [id number] Information not available 11/17/2022 Have You Ever Been Counseled For Unhealthy Alcohol Use? No Information not available 11/17/2022 Do You Use Protection During Sex? No Information not available 11/17/2022 Do You Use Your Seat Belt Or Car Seat Routinely? Yes [email or web address] Information not available 10/19/2021 Do You Have Smoke And Carbon Monoxide Detectors In Your Home? Yes Information not available 09/19/2020 How Much Tobacco Do You Smoke? No Information not available 11/17/2022 Do You Use Sunscreen Routinely? Yes Information not available 09/19/2020 Has Tobacco Cessation Counseling Been Provided? No Information not available 11/17/2022 Have You Used IV Drugs? No Information not available 11/17/2022 Do You Have Difficulty Walking Or Climbing Stairs? No Information not available 11/17/2022 Sex: Unknown Functional Status Question Answer Note LastModified by Organizat ion Details LastModified Time Do you use any illicit or recreational drugs? No Information not available 09/19/2020 Do you or have you ever used any other forms of tobacco or nicotine? No Information not available 11/17/2022 What is your level of alcohol consumption? Occasional Information not available 09/19/2020 Are you able to walk independently without assistance or assistive devices? YESWOREST Information not available 09/19/2020 Are you able to care for yourself independently? Yes Information not available 11/17/2022 Do you have difficulty dressing, bathing, grooming, or toileting? No Information not available 11/17/2022 What is your exercise level? Occasional Information not available 09/19/2020 Mental Status Question Answer Note LastModified by Organization D etails LastModified Time Do you feel stressed (tense, restless, nervous, or anxious, or unable to sleep at night)? [id number] Information not available 11/17/2022 Family History Relationship Description Onset Age of [...] Diagnosis SNOMED-CT Code Diagnosis ICD10 Code Diagnosis IMO Codes Diagnosis Note [id number] [facility] [address] [address] 09/19/2020 11:08:23 09/19/2020 12:10:36 Gynecologic examination 74981462 Z01.419 Take Calcium with Vitamin D 12-1500mg daily. Do monthly self breast exams. It is advised to get annual flu shot in the fall and she could obtain at [facility] or [facility] clinic. If you haven't received the Tdap [...] call or respond to this email Pap/hpv updatedDec lined std screeColon UTDDexa n/a Dyspareunia 29527390 N94 .10 Trial of low dose vaginal premarin to help with discomfort during SA likely caused from postmenopa usal changes as seen on exam. Reduced libido 6146764 R 68.82 Hx of HTNControl led on medication No desire or libido at allThis causes relationsh ip issues. Lesion of vulva 97375406 6 N90.89 Lesion noted upper inner left labia minora; along with some white discolorat ion of skin surroundin g this area. Reports of chronic itching in this area. Have recommende d a biospy of these areasTo return in 1-2wks to have this completedU se vcg moisturizi ng guidelines daily [id number] Amairani Courtney , [facility] [address] [address] 10/02/2020 14:09:04 10/05/2020 16:05:58 Chronic vaginitis 78198411 N76.1 See procedure notes. Post-proce dure instructio aashish reviewedH/ O's given on LS and instructio ns for home review.Med ication sent & verbalized instructio ns/safety counselor ing given with understand ing verbalized [...] this patient s visit, including available hand transportation superintendent upon arrive, temperatur e check and being asked a series of screening questions. All staff wore face coverings during this encounter, as well as provided additional cleaning and sanitizing of all surfaces, including countertop s, pens, chairs, door handles, light switches, etc, prior to and following the patient s visit. [id number] Amairani Courtney [facility] [address] [address] 11/06/2020 11:38:28 11/06/2020 13:43:24 Genital lichen sclerosus 816110337 L90.0 Vulvar bx results reviewedH/ O given [...] this patient s visit, including available hand transportation superintendent upon arrive, temperatur e check and being asked a series of screening questions. All staff wore face coverings during this encounter, as well as provided additional cleaning and sanitizing of all surfaces, including countertop s, pens, chairs, door handles, light switches, etc, prior to and following the patient s visit. [id number] Amairani Courtney [facility] [address],[facility] [place] [address] 09/26/2021 10:55:37 09/26/2021 12:13:14 Gynecologic examination 74873566 Z01.419 Z11.51 Take Calcium with Vitamin D 12-1500mg daily. Do monthly self breast exams. It is advised to get annual flu shot in the fall and she could obtain at [facility] or [facility] take care clinic. If you haven't received [...] Labs UTD PCPMammo Ordered Screening mammography 24 080754 Z12.31 Genital li lopez sclerosus 257626597 L90.0 Today we discussed trial of Clobetasol ointment & reviewed again VCG's especially daily moisturizi ng.Will call if issues. [id number] Amairani Courtney [facility] [address] [address] 11/17/2022 15:55:27 11/17/2022 17:00:09 Erythematous rash 900223558 R21 Significan t red rash present on [...] counseling and review of plan of care. [id number] Mike Josue MD [place] [address] [address] 01/30/2024 10:36:45 01/30/2024 11:22:35 Gynecologic examination 76899981 Z01.419 Annual gynecologi carmelina exam performed. Patient [...] testing - declined Genital li lopez sclerosus 324666333 L90.0 Refilled clobetasol 0.05% topical ointment to apply to vulva BID PRNContinu e to follow-up with dermatolog ist routinely. Discussed vulvar care guidelines in addition to laundry/sk in irritants to avoid. Screening mammography 24 074396 Z12.31 Screening for malignant neoplasm of colon 916485892 Z12.11 GI referral to [facility] Screening colonoscopy 44 5466156 Z12.11 Candidiasis of skin 4988 3006 B37.2 Keep affected areas clean and dry.Rx Nystatin topical powder to apply twice daily as needed to treat intertrigo of abdominal fold and under breasts. Health Concerns Section Related Observation LastModified by Organization Detai ls LastModified Time None Recorded Concern Status LastModified by Organization Details LastModified Time None Recorded Advance Directives Directive None Recorded Payers Insurance Date Sequence Insurance Name Policy Number Policy Pearl Covered Member ID Pearl Member ID Guarantor Name 01/30/2024 1 [facility] (POS II) Emmett Johnson [id number] Pamela Johnson Notes Date Note Type Note Provider Name and Address Organization Details Recorded Time 1 text/html ROS as noted in the HPI Here for vulvar biopsy for suspected LS. [facility] [address], [place], [address], [facility] 10/03/2020 15:52:52 1 text/html ROS as noted in the HPI Here today to review vulvar biospy results. [facility]irani Court[facility] [address], [place], [address], [facility] 11/06/2020 13:36:38 2 text/html Annual Bilingual Branch Manager Post-MenopausalReported by PatientGenitourinary symptomsFor menopausal symptoms, patient reportsno menopausal symptomsandnormal vaginal lubrication. For vaginal bleeding, patient reportshistory of menopause having occurredandno history of post menopausal bleeding. For urinary symptoms, patient reportsno hematuria,no incontinence,no nocturia, andno urinary frequency. For vulva, patient reportsno genital lesionandno vulvar atrophy. For vagina, patient reportsnormal vaginal dischargeandno vaginal atrophy.Breast symptomsFor breast, patient reportsno breast lump,no nipple discharge, andno breast pain.Psychological symptomsFor sexual complaints, patient reportsno sexual complaints. For psychological symptoms, patient reportsno depressionandno anxiety.Preventative measuresFor preventive measures, patient reportsencourage regular mammograms starting age 40,encourage self breast examination,encourage regular exercise,encourage no tobacco use,needs to schedule mammogram, andhistory of recent colonoscopy. JUNIOR Baltazar- [address], [place], [address], [facility] 09/26/2021 11:39:11 3 text/html ROS as noted in the HPI Here today for vulva/groin/buttocks rash, itchy, irritated, burning feeling.She denies new [...] short amt of time.No lesionsNeg pain of abd/pelvis/flankNeg urinary sx'sNeg GI sx'sNeg N/V/F/C/DNeg Vag d/c, odor, irritation, itching JUNIOR Baltazar-PAR[facility] [address], [place], [address], [facility] 11/17/2022 16:55:09 4 text/html Annual Bilingual Branch Manager Post-MenopausalReported by PatientGenitourinary symptomsFor vulva, patient reportsatrophic vulvabut reportsno genital lesion(lichen sclerosis). For vagina, patient reportsatrophic vaginabut reportsnormal vaginal discharge. For menopausal symptoms, patient reportsno menopausal symptomsandnormal vaginal lubrication. For vaginal bleeding, patient reportshistory of menopause having occurredandno history of post menopausal bleeding. For urinary symptoms, patient reportsno hematuria,no incontinence,no nocturia, andno urinary frequency.Breast symptomsFor breast, patient reportsno breast lump,no nipple discharge, andno breast pain.Psychological symptomsFor sexual complaints, patient reportsno sexual complaints. For psychological symptoms, patient reportsno depressionandno anxiety.Preventative measuresFor preventive measures, patient reportsencourage regular mammograms starting age 40,encourage self breast examination,encourage regular exercise, andencourage no tobacco use. Patient presents for annual well woman exam.Patient reports hx of lichen sclerosis; sees internal controls analyst. Patient reports current flare of vulvar irritation. Patient requests refill of clobetasol ointment.Patient also reports intermittent moisture and itching under abdominal and breast folds. Brandy Bowman [facility], [facility] 01/30/2024 11:31:25 OBGyn Episode Ob Episode Information Episode Created Date Number of Fetuses Patient Bloodtype Patient rh Status Prepregnancy Weight lbs Domestic Partner Domestic Partner Phone Father Name Herbarium Worker Status 09/20/19 21 1 CLOSED Fetus Data First Name Last Name Admitted to NICU Weight (g) Sex Living Outcome Pediatric Complications Fetus ID Race Codes Race Delivery Type 3175.14 4 F Full Term [id number] Vaginal Delivery Claudio Calculation Initial Claudio Date [...] Domestic Partner Domestic Partner Phone Father Name Herbarium Worker Status 09/20/19 21 1 CLOSED Fetus Data First Name Last Name Admitted to NICU Weight (g) Sex Living Outcome Pediatric Complications Fetus ID Race Codes Race Delivery Type 3005.04 7 M Full Term [id number] Vaginal Delivery Claudio Calculation Initial Claudio Date [...]
[2024-11-25 11:34] VITALS: BP 154/81; PULSE 64; RESP 20; TEMP 36.6; O2SAT 97
[2024-11-25] MEDS: HYDROcodone/acetaminophen (*CRX) 5-325 MG TABLET 1 TAB PO (11:45)
[2024-11-25] MEDS: IBUPROFEN 600 MG TABLET PO (11:45)
== END 2024-11-25 12:23 | disposition home or self-care (01) ==
LOC: CHSED 12:16
PROVIDERS: Emergency Provider Emergency Medicine; PCP Family Medicine
DX: S62.102A Fracture of unspecified carpal bone, left wrist, initial encounter for closed fracture (principal); E11.9 Type 2 diabetes mellitus without complications; E78.2 Mixed hyperlipidemia; W01.0XXA Fall on same level from slipping, tripping and stumbling without subsequent striking against object, initial encounter
CPT/HCPCS: 29125; 73110; 99284; A4565; A9270